=== PATIENT | male | born 1940 | race Caucasian/White ===

== ENCOUNTER 2020-08-15 12:06 | Outpatient (REF) | payer MEDICARE, SELFPAY ==
--- NOTE | 2020-08-15 12:50 | US_ITS ---
EXAMINATION: US VENOUS ULTRASOUND WITH DOPPLER LOWER EXTREMITY, LEFT CLINICAL INFORMATION: Left lower extremity pain. Swelling posterior knee. COMPARISON: None TECHNIQUE: Ultrasound of the deep veins is performed from the hip to the calf with compression sonography and color and pulse Doppler assessment. Spectral analysis with color-flow imaging is performed. FINDINGS: There is normal venous compression and respiratory variation and augmented flow. The visualized common femoral vein, superficial femoral vein, profunda femoral vein, popliteal vein, and the trifurcation region shows no evidence of deep venous thrombosis. No visible popliteal fossa cyst. No cystic or solid mass seen popliteal fossa. US/US venous duplex LE LT IMPRESSION: No DVT demonstrated in the left lower extremity.
== END 2020-08-15 12:07 | disposition home or self-care (01) ==
LOC: HO.US 12:06
PROVIDERS: Visit Provider Internal Medicine
DX: M79.662 Pain in left lower leg (principal); M79.89 Other specified soft tissue disorders
CPT/HCPCS: 93971

== ENCOUNTER 2020-08-20 13:55 | Outpatient (REF) | payer MEDICARE, SELFPAY ==
--- NOTE | 2020-08-20 14:02 | XR_ITS ---
EXAMINATION: XR KNEE, LEFT CLINICAL INFORMATION: Left leg pain COMPARISON: None TECHNIQUE: Four views of the left knee. FINDINGS: No fracture or dislocation seen. Mild medial and patellofemoral joint space narrowing. There are dystrophic calcifications or enthesophytes of the distal quadriceps tendon attachment to the patella consistent with prior injury. No joint effusion. XR/XR knee LT 4V IMPRESSION: Mild medial and patellofemoral joint space narrowing. No acute osseous abnormality.
== END 2020-08-20 13:56 | disposition home or self-care (01) ==
LOC: HO.XRAY 13:55
PROVIDERS: PCP Internal Medicine; Visit Provider Internal Medicine
DX: M79.605 Pain in left leg (principal)
CPT/HCPCS: 73564

== ENCOUNTER 2020-10-02 07:58 | Outpatient (REF) | payer MEDICARE, SELFPAY ==
[2020-10-02 08:34] LABS: MANUAL DIFF FLAG NO
[2020-10-02 08:38] LABS: Basophils Absolute Auto 0.1 X10*3/uL (0.0-0.2); Basophils Percent Auto 0.9 % (0-2); Eosinophils Absolute Auto 0.2 X10*3/uL (0.0-0.4); Hematocrit 49.2 % (42-52); Imm Gran Abs Auto 0.03 X10*3/uL (0.00-0.03); Imm Gran Pct Auto 0.4 % (0.0-0.4); Lymphocytes Absolute Auto 3.6 X10*3/uL (1.2-4.9); Lymphocytes Percent Auto 44.4 % (20-40); Mean Corpuscular HGB Conc 34.6 g/dl (31.0-36.0); Mean Corpuscular Hemoglobin 29.5 pg (27.0-33.0); Mean Corpuscular Volume 85.4 fL (80-98); Mean Platelet Volume 10.5 fL (9.4-12.4); Monocytes Absolute Auto 0.9 X10*3/uL (0.1-1.2); Monocytes Percent Auto 10.4 % (2-11); Neutrophils Absolute Auto 3.4 X10*3/uL (2.0-8.3); Neutrophils Percent Auto 41.9 % (45-73); Platelet Count 235 X10*3/uL (160-400); Red Blood Count 5.76 X10*6/uL (4.60-5.80); Red Cell Distribution Width 13.2 % (11.0-16.0); White Blood Count 8.2 X10*3/uL (4.8-10.8)
[2020-10-02 09:05] LABS: Alanine Aminotransferase 27 U/L (0-40); Albumin Level 3.9 g/dL (3.5-5.0); Alkaline Phosphatase 79 U/L (39-117); Anion Gap 11 (12-20); Aspartate Amino Transferase 16 U/L (5-37); Bilirubin Total 0.8 mg/dL (0.0-1.0); Blood Urea Nitrogen 31 mg/dL (9-16); Calcium 8.9 mg/dL (8.4-10.2); Carbon Dioxide 27 mmol/L (22-29); Chloride 103 mmol/L (96-108); Cholesterol 202 mg/dL; Estimated Glomerular Filt Rate 43; Glucose Random 152 mg/dL (60-115); HDL Cholesterol 69 mg/dL; LDL Cholesterol Calculated 110 mg/dl; Potassium 4.7 mmol/l (3.3-5.1); Sodium 136 mmol/L (135-145); Total Protein 7.4 g/dL (6.5-8.0); Triglycerides 119 mg/dL
[2020-10-02 09:17] LABS: Glucose Urine UA 100 MG/DL (NEG); Leukocyte Esterase Urine NEG (NEG); Nitrite Urine NEG (NEG); Urine Blood NEG (NEG); Urine Ketones NEG (NEG); Urine Protein 1+ MG/DL (NEG-TRACE)
[2020-10-02 09:21] LABS: Appearance Urine CLEAR; Color Urine YELLOW
[2020-10-02 09:42] LABS: RBC Urine 0-2 /HPF (0); WBC Urine 0-2 /HPF (0-4)
[2020-10-02 09:45] LABS: Creatinine Urine 94.94 mg/dL; Microalbum/Creatinine Ratio Ur 235.9 ug/mg cr
[2020-10-02 09:46] LABS: Estimated Average Glucose 235 mg/dL; Hemoglobin A1c % 9.8 %
[2020-10-02 10:04] LABS: Prostate Specific Antigen 4.81 ng/mL (<0.05-4.0)
== END 2020-10-02 07:59 | disposition home or self-care (01) ==
LOC: HO.LAB 07:58
PROVIDERS: Visit Provider Internal Medicine
DX: E10.29 Type 1 diabetes mellitus with other diabetic kidney complication (principal); I10 Essential (primary) hypertension; R79.89 Other specified abnormal findings of blood chemistry
CPT/HCPCS: 36415; 80053; 80061; 81001; 82043; 83036; 84153; 85025

== ENCOUNTER 2021-01-08 10:40 | Outpatient (REF) | payer MEDICARE, SELFPAY ==
[2021-01-08 14:08] LABS: MANUAL DIFF FLAG NO
[2021-01-08 14:14] LABS: Basophils Absolute Auto 0.1 X10*3/uL (0.0-0.2); Basophils Percent Auto 0.9 % (0-2); Eosinophils Absolute Auto 0.1 X10*3/uL (0.0-0.4); Eosinophils Percent Auto 1.7 % (0-4); Hematocrit 45.7 % (42-52); Hemoglobin 16.2 g/dl (14.0-18.0); Imm Gran Abs Auto 0.04 X10*3/uL (0.00-0.03); Imm Gran Pct Auto 0.5 % (0.0-0.4); Lymphocytes Absolute Auto 3.2 X10*3/uL (1.2-4.9); Mean Corpuscular HGB Conc 35.4 g/dl (31.0-36.0); Mean Corpuscular Hemoglobin 30.5 pg (27.0-33.0); Mean Corpuscular Volume 85.9 fL (80-98); Mean Platelet Volume 11.4 fL (9.4-12.4); Monocytes Absolute Auto 0.8 X10*3/uL (0.1-1.2); Monocytes Percent Auto 9.8 % (2-11); Neutrophils Absolute Auto 3.6 X10*3/uL (2.0-8.3); Neutrophils Percent Auto 46.1 % (45-73); Platelet Count 252 X10*3/uL (160-400); Red Blood Count 5.32 X10*6/uL (4.60-5.80); Red Cell Distribution Width 13.5 % (11.0-16.0); White Blood Count 7.8 X10*3/uL (4.8-10.8)
[2021-01-08 14:41] LABS: Estimated Average Glucose 220 mg/dL; Hemoglobin A1c % 9.3 %
[2021-01-08 14:49] LABS: Alanine Aminotransferase 27 U/L (0-40); Alkaline Phosphatase 72 U/L (39-117); Anion Gap 15 (12-20); Aspartate Amino Transferase 18 U/L (5-37); Bilirubin Total 0.6 mg/dL (0.0-1.0); Blood Urea Nitrogen 35 mg/dL (9-16); Calcium 8.8 mg/dL (8.4-10.2); Carbon Dioxide 22 mmol/L (22-29); Chloride 106 mmol/L (96-108); Estimated Glomerular Filt Rate 43; Glucose Random 130 mg/dL (60-115); Potassium 4.6 mmol/L (3.3-5.1); Sodium 138 mmol/L (135-145); Total Protein 7.4 g/dL (6.5-8.0)
[2021-01-08 14:56] LABS: Creatinine Urine 150.74 mg/dL; Microalbum/Creatinine Ratio Ur 164.5 ug/mg cr
== END 2021-01-08 10:41 | disposition home or self-care (01) ==
LOC: HO.10HDL 10:40
PROVIDERS: Visit Provider Internal Medicine
DX: I12.9 Hypertensive chronic kidney disease with stage 1 through stage 4 chronic kidney disease, or unspecified chronic kidney disease (principal); N18.9 Chronic kidney disease, unspecified; E11.22 Type 2 diabetes mellitus with diabetic chronic kidney disease
CPT/HCPCS: 36415; 80053; 82043; 83036; 85025

== ENCOUNTER 2021-04-15 12:10 | Outpatient (REF) | payer MEDICARE, SELFPAY ==
[2021-04-15 13:26] LABS: Estimated Average Glucose 223 mg/dL; Hemoglobin A1c % 9.4 %
[2021-04-15 13:49] LABS: Alanine Aminotransferase 23 U/L (0-40); Albumin Level 3.8 g/dL (3.5-5.0); Alkaline Phosphatase 75 U/L (39-117); Anion Gap 14 (12-20); Aspartate Amino Transferase 17 U/L (5-37); Bilirubin Total 0.6 mg/dL (0.0-1.0); Blood Urea Nitrogen 31 mg/dL (9-16); Calcium 9.4 mg/dL (8.4-10.2); Carbon Dioxide 22 mmol/L (22-29); Chloride 107 mmol/L (96-108); Estimated Glomerular Filt Rate 39; Glucose Random 85 mg/dL (60-115); Potassium 4.4 mmol/L (3.3-5.1); Sodium 139 mmol/L (135-145); Total Protein 7.1 g/dL (6.5-8.0)
[2021-04-15 14:49] LABS: Creatinine Urine 127.04 mg/dL; Microalbum/Creatinine Ratio Ur 140.1 ug/mg cr
== END 2021-04-15 12:11 | disposition home or self-care (01) ==
LOC: HO.LAB 12:10
PROVIDERS: PCP Internal Medicine; Visit Provider Internal Medicine
DX: I12.9 Hypertensive chronic kidney disease with stage 1 through stage 4 chronic kidney disease, or unspecified chronic kidney disease (principal); N18.9 Chronic kidney disease, unspecified; E11.22 Type 2 diabetes mellitus with diabetic chronic kidney disease
CPT/HCPCS: 36415; 80053; 82043; 83036

== ENCOUNTER 2022-12-17 13:32 | Outpatient (REF) | payer MEDICARE, SELFPAY ==
[2022-12-17 14:39] LABS: Influenza A PCR NEGATIVE (Negative); Influenza B PCR NEGATIVE (Negative); Resp Syncy Virus RNA Qual PCR NEGATIVE (Negative); SARS COV2 PCR INHOUSE POSITIVE (Negative)
== END 2022-12-17 13:33 | disposition home or self-care (01) ==
LOC: HO.LNP 13:32
PROVIDERS: Visit Provider Internal Medicine
DX: R05.9 Cough, unspecified (principal); R50.9 Fever, unspecified; Z20.822 Contact with and (suspected) exposure to COVID-19
CPT/HCPCS: 0241U

== ENCOUNTER 2022-12-31 09:55 | Outpatient (REF) | payer MEDICARE, SELFPAY ==
[2022-12-31 10:27] LABS: MANUAL DIFF FLAG NO
[2022-12-31 10:43] LABS: Basophils Absolute Auto 0.1 X10*3/uL (0.0-0.2); Basophils Percent Auto 1.3 % (0-2); Eosinophils Absolute Auto 0.3 X10*3/uL (0.0-0.4); Eosinophils Percent Auto 4.8 % (0-4); Hematocrit 43.3 % (42.0-52.0); Imm Gran Abs Auto 0.07 X10*3/uL (0.00-0.03); Lymphocytes Absolute Auto 2.2 X10*3/uL (1.2-4.9); Lymphocytes Percent Auto 33.4 % (20-40); Mean Corpuscular HGB Conc 34.6 g/dl (31.0-36.0); Mean Corpuscular Hemoglobin 29.2 pg (27.0-33.0); Mean Corpuscular Volume 84.2 fL (80.0-98.0); Mean Platelet Volume 9.9 fL (9.4-12.4); Monocytes Percent Auto 14.3 % (2-11); Neutrophils Percent Auto 45.2 % (45-73); Platelet Count 490 X10*3/uL (160-400); Red Blood Count 5.14 X10*6/uL (4.60-5.80); Red Cell Distribution Width 12.7 % (11.0-16.0); White Blood Count 6.7 X10*3/uL (4.8-10.8)
[2022-12-31 11:16] LABS: Alanine Aminotransferase 32 U/L (0-40); Albumin Level 3.2 g/dL (3.5-5.0); Alkaline Phosphatase 83 U/L (39-117); Anion Gap 14 (12-20); Aspartate Amino Transferase 17 U/L (5-37); Bilirubin Total 0.7 mg/dL (0.0-1.0); Blood Urea Nitrogen 25 mg/dL (9-16); Calcium 8.8 mg/dL (8.4-10.2); Carbon Dioxide 22 mmol/L (22-29); Chloride 107 mmol/L (96-108); Estimated Glomerular Filt Rate 43; Glucose Random 147 mg/dL (60-115); Sodium 138 mmol/L (135-145); Total Protein 6.4 g/dL (6.5-8.0)
[2022-12-31 11:38] LABS: Free T4 (Free Thyroxine) 1.16 ng/dL (0.71-1.85); Thyroid Stimulating Hormone 0.66 uIU/mL (0.32-4.0); Vitamin B12 883 pg/mL (200-900)
[2022-12-31 11:42] LABS: Estimated Average Glucose 212 mg/dL
== END 2022-12-31 09:56 | disposition home or self-care (01) ==
LOC: HO.10HDL 09:55
PROVIDERS: Visit Provider Internal Medicine
DX: G62.9 Polyneuropathy, unspecified (principal); I12.9 Hypertensive chronic kidney disease with stage 1 through stage 4 chronic kidney disease, or unspecified chronic kidney disease; E11.22 Type 2 diabetes mellitus with diabetic chronic kidney disease; N18.9 Chronic kidney disease, unspecified
CPT/HCPCS: 36415; 80053; 82607; 83036; 84439; 84443; 85025

== ENCOUNTER 2023-03-13 08:53 | Outpatient (REF) | payer MEDICARE, SELFPAY ==
[2023-03-13 09:11] LABS: MANUAL DIFF FLAG NO
[2023-03-13 09:33] LABS: Basophils Absolute Auto 0.1 X10*3/uL (0.0-0.2); Basophils Percent Auto 0.8 % (0-2); Eosinophils Absolute Auto 0.2 X10*3/uL (0.0-0.4); Eosinophils Percent Auto 2.9 % (0-4); Hematocrit 43.6 % (42.0-52.0); Hemoglobin 15.1 g/dl (14.0-18.0); Imm Gran Abs Auto 0.03 X10*3/uL (0.00-0.03); Imm Gran Pct Auto 0.4 % (0.0-0.4); Lymphocytes Absolute Auto 3.1 X10*3/uL (1.2-4.9); Lymphocytes Percent Auto 37.6 % (20-40); Mean Corpuscular HGB Conc 34.6 g/dl (31.0-36.0); Mean Corpuscular Hemoglobin 29.8 pg (27.0-33.0); Mean Corpuscular Volume 86.2 fL (80.0-98.0); Mean Platelet Volume 10.3 fL (9.4-12.4); Monocytes Absolute Auto 0.8 X10*3/uL (0.1-1.2); Monocytes Percent Auto 9.8 % (2-11); Neutrophils Percent Auto 48.5 % (45-73); Platelet Count 233 X10*3/uL (160-400); Red Blood Count 5.06 X10*6/uL (4.60-5.80); Red Cell Distribution Width 13.7 % (11.0-16.0); White Blood Count 8.3 X10*3/uL (4.8-10.8)
[2023-03-13 09:54] LABS: Anion Gap 13 (12-20); Blood Urea Nitrogen 31 mg/dL (9-16); Calcium 9.5 mg/dL (8.4-10.2); Carbon Dioxide 21 mmol/L (22-29); Chloride 108 mmol/L (96-108); Estimated Glomerular Filt Rate 41; Glucose Random 175 mg/dL (60-115); Potassium 4.7 mmol/L (3.3-5.1); Sodium 137 mmol/L (135-145)
[2023-03-13 10:27] LABS: Creatinine Urine 117.47 mg/dL; Protein/Creatinine Ratio, Ur 0.79 (<0.2); Total Protein Urine Random 93 mg/dL (<12)
== END 2023-03-13 08:54 | disposition home or self-care (01) ==
LOC: HO.LAB 08:53
PROVIDERS: PCP Internal Medicine; Visit Provider Internal Medicine Hypertension Specialist
DX: N18.31 Chronic kidney disease, stage 3a (principal)
CPT/HCPCS: 36415; 80048; 84156; 85025

== ENCOUNTER 2023-04-01 08:24 | Outpatient (REF) | payer MEDICARE, SELFPAY ==
[2023-04-01 11:15] LABS: Estimated Average Glucose 183 mg/dL
[2023-04-01 11:26] LABS: Alanine Aminotransferase 18 U/L (0-40); Albumin Level 3.6 g/dL (3.5-5.0); Alkaline Phosphatase 69 U/L (39-117); Anion Gap 14 (12-20); Aspartate Amino Transferase 15 U/L (5-37); Bilirubin Total 0.6 mg/dL (0.0-1.0); Blood Urea Nitrogen 38 mg/dL (9-16); Calcium 9.3 mg/dL (8.4-10.2); Carbon Dioxide 24 mmol/L (22-29); Chloride 106 mmol/L (96-108); Cholesterol 205 mg/dL; Estimated Glomerular Filt Rate 36; Glucose Random 149 mg/dL (60-115); Potassium 4.6 mmol/L (3.3-5.1); Sodium 139 mmol/L (135-145)
== END 2023-04-01 08:25 | disposition home or self-care (01) ==
LOC: HO.LAB 08:24
PROVIDERS: PCP Internal Medicine; Visit Provider Internal Medicine
DX: E11.22 Type 2 diabetes mellitus with diabetic chronic kidney disease (principal); I12.9 Hypertensive chronic kidney disease with stage 1 through stage 4 chronic kidney disease, or unspecified chronic kidney disease; N18.9 Chronic kidney disease, unspecified
CPT/HCPCS: 36415; 80053; 82465; 83036

== ENCOUNTER 2023-06-10 09:20 | Outpatient (REF) | payer MEDICARE, SELFPAY ==
--- NOTE | 2023-06-10 09:24 | EMG_ITS ---
Bilateral tibial and peroneal motor studies were performed. Bilateral superficial peroneal and sural sensory studies were performed. Median and lateral plantar sensory studies were performed. Tibial H reflexes were obtained. A needle examination was performed. 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 MD LUIS FERNANDO Bentley/ANG / [id number]
== END 2023-06-10 09:21 | disposition home or self-care (01) ==
LOC: HO.NEURO 09:20
PROVIDERS: PCP Internal Medicine; Visit Provider Internal Medicine
DX: E11.40 Type 2 diabetes mellitus with diabetic neuropathy, unspecified (principal)
CPT/HCPCS: 95886; 95913

== ENCOUNTER 2023-08-31 14:17 | Outpatient (AMB) | payer MEDICARE, SELFPAY ==
[2023-08-31 14:26] VITALS: BP 138/68; PULSE 64; BMI 30.5
--- NOTE | 2023-08-31 14:26 | HO.NEPHOV ---
HPI HPI Comments History of Present Illness Details Elderly man with history of longstanding hypertension diabetes mellitus with CKD. He is complaining of pain in his feet most likely from neuropathy. He was unable to tolerate Lyrica in the past. He was given 100 mg which he did not tolerate. Today he has no other new complaints. No urine symptoms. No nausea vomiting. Vital Signs 08/31/23 14:26 Height 5 ft 6 in Weight 189 lb BMI 30.5 BP 138/68 Pulse 64 Pulse Source Palpation Physical Exam Vital Signs: Last Vital Signs Pulse 64 08/31/23 14:26 BP 138/68 08/31/23 14:26 BMI result Body Mass Index 30.5 Const General: comfortable; No acute distress Orientation/consciousness: patient oriented x3 Eyes General: appearance normal, both eyes and all related structures Visual Carver: normal visual carver by confrontation Neck Neck: Yes supple and Yes no JVD Resp Effort & Inspection: normal respiratory effort and respiratory effort not decreased Auscultation: rhonchi Cardio Palpation: no palpable S3 and no palpable S4 Heart sounds: no rubs GI Inspection: Yes normal to inspection Palpation (GI): Soft to palpation Percussion: Yes normal to percussion Auscultation: normal bowel sounds General: Yes no CVA tenderness Back/Spine/Pelvis Back: no CVA tenderness Skin General skin exam: no petechiae and no purpura Neuro General: patient oriented x3 and no focal motor deficits Extrem General: No clubbing and No edema Results Reviewed Results Reviewed: All lab results were reviewed from [facility] Assessment & Plan Assessment & Plan (1) CKD (chronic kidney disease) stage 3, GFR 30-59 ml/min: Code(s): N18.30 - Chronic kidney disease, stage 3 unspecified (2) Diabetes mellitus with chronic kidney disease: Code(s): E11.22 - Type 2 diabetes mellitus with diabetic chronic kidney disease Plan Elderly man CKD 3 in the setting of longstanding diabetes mellitus. Overall renal function stable. Goal is to slow the progression of renal disease. Continue to avoid nephrotoxic agents including NSAIDs. Maintain blood pressure less than 130 mm of mercury. No changes were made today. Orders: Orders Total Protein Urine Random 4 Months N18.30 - Chronic kidney disease, stage 3 unspecified Electrolytes 4 Months N18.30 - Chronic kidney disease, stage 3 unspecified Creatinine Clearance Urine 4 Months N18.30 - Chronic kidney disease, stage 3 unspecified Blood Urea Nitrogen 4 Months N18.30 - Chronic kidney disease, stage 3 unspecified Creatinine 4 Months N18.30 - Chronic kidney disease, stage 3 unspecified Calcium 4 Months N18.30 - Chronic kidney disease, stage 3 unspecified Coding Level of Care Code Est Pt Level 3 (39255) Diagnoses CKD (chronic kidney disease) stage 3, GFR 30-59 ml/min N18.30 Diabetes mellitus with chronic kidney disease E11.22
== END 2023-08-31 14:49 | disposition home or self-care (01) ==
LOC: HO.HKA 14:17
PROVIDERS: PCP Internal Medicine; Visit Provider Internal Medicine Hypertension Specialist
DX: E11.22 Type 2 diabetes mellitus with diabetic chronic kidney disease (principal); N18.30 Chronic kidney disease, stage 3 unspecified
CPT/HCPCS: 99213

== ENCOUNTER → 2023-08-31 14:17 | Outpatient (BNVA) | payer MEDICARE, SELFPAY | PROVIDERS: PCP Internal Medicine; Visit Provider Internal Medicine Hypertension Specialist | DX: E11.22 Type 2 diabetes mellitus with diabetic chronic kidney disease (principal); N18.30 Chronic kidney disease, stage 3 unspecified | CPT/HCPCS: 99212 ==

== ENCOUNTER 2023-12-16 14:07 | Outpatient (REF) | payer MEDICARE, SELFPAY ==
[2023-12-16 15:25] LABS: Anion Gap 10 (12-20); Blood Urea Nitrogen 26 mg/dL (9-16); Carbon Dioxide 25 mmol/L (22-29); Chloride 108 mmol/L (96-108); Potassium 4.4 mmol/L (3.3-5.1); Sodium 139 mmol/L (135-145)
[2023-12-16 16:05] LABS: Total Protein Urine Random 142 mg/dL (<12)
== END 2023-12-16 14:08 | disposition home or self-care (01) ==
LOC: HO.LAB 14:07
PROVIDERS: Visit Provider Internal Medicine Hypertension Specialist
DX: N18.30 Chronic kidney disease, stage 3 unspecified (principal)
CPT/HCPCS: 36415; 80051; 82310; 84156; 84520

== ENCOUNTER 2023-12-21 11:33 | Outpatient (AMB) | payer MEDICARE, SELFPAY ==
[2023-12-21 11:34] VITALS: BP 126/70; PULSE 80; O2SAT 98; BMI 30.5
--- NOTE | 2023-12-21 11:34 | HO.NEPHOV ---
HPI HPI Comments History of Present Illness Details Elderly man with history of longstanding hypertension diabetes mellitus with CKD. h/o pain in his feet most likely from neuropathy. He was unable to tolerate Lyrica in the past. He was given 100 mg which he did not tolerate. Continues to have some numbness in his feet No urine symptoms. No nausea vomiting. [facility] Social History (Updated 12/21/23 @ 11:37 by Brittni Landeros) Alcohol intake: former Use of substances other than those prescribed or required for medical reasons: No Vital Signs 12/21/23 11:34 Height 5 ft 6 in Weight 189 lb BMI 30.5 BP 126/70 Blood Pressure Location Lt brachial Position Sitting Pulse 80 Pulse Source Pulse Oximeter Pulse Oximetry (%) 98 Oxygen Delivery Method Room Air Physical Exam Vital Signs: Last Vital Signs Pulse 80 12/21/23 11:34 BP 126/70 12/21/23 11:34 Pulse Ox 98 12/21/23 11:34 Oxygen Delivery Method Room Air 12/21/23 11:34 BMI result Body Mass Index 30.5 Const General: comfortable; No acute distress Orientation/consciousness: patient oriented x3 Eyes General: appearance normal, both eyes and all related structures Visual Carver: normal visual carver by confrontation Neck Neck: Yes supple and Yes no JVD Resp Effort & Inspection: normal respiratory effort and respiratory effort not decreased Auscultation: rhonchi Cardio Palpation: no palpable S3 and no palpable S4 Heart sounds: no rubs GI Inspection: Yes normal to inspection Palpation (GI): Soft to palpation Percussion: Yes normal to percussion Auscultation: normal bowel sounds General: Yes no CVA tenderness Back/Spine/Pelvis Back: no CVA tenderness Skin General skin exam: no petechiae and no purpura Neuro General: patient oriented x3 and no focal motor deficits Extrem General: No clubbing and No edema Assessment & Plan Assessment & Plan (1) CKD (chronic kidney disease) stage 3, GFR 30-59 ml/min: Code(s): N18.30 - Chronic kidney disease, stage 3 unspecified (2) Diabetes mellitus with chronic kidney disease: Code(s): E11.22 - Type 2 diabetes mellitus with diabetic chronic kidney disease Plan Elderly man CKD 3 in the setting of longstanding diabetes mellitus. Overall renal function stable. Recent Urine Pro: cr was 0.79 Goal is to slow the progression of renal disease. Continue to avoid nephrotoxic agents including NSAIDs. Maintain blood pressure less than 130 mm of mercury. No changes were made today. Orders: Orders Comprehensive Met. 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, N18.30 - Chronic kidney disease, stage 3 unspecified Sodium Urine Random 6 Months E11.22 - Type 2 diabetes mellitus with diabetic chronic kidney disease, N18.30 - Chronic kidney disease, stage 3 unspecified, N18.9 - Chronic kidney disease, unspecified Parathyroid Hormone Intact 6 Months E11.22 - Type 2 diabetes mellitus with diabetic chronic kidney disease, N18.30 - Chronic kidney disease, stage 3 unspecified Total Protein Urine Random 6 Months E11.22 - Type 2 diabetes mellitus with diabetic chronic kidney disease, N18.30 - Chronic kidney disease, stage 3 unspecified Coding Level of Care Code Est Pt Level 4 (09430) Diagnoses CKD (chronic kidney disease) stage 3, GFR 30-59 ml/min N18.30 Diabetes mellitus with chronic kidney disease E11. Results Reviewed Nephrology Results: Hgb 15.1 g/dl (14.0-18.0) 03/13/23 WBC 8.3 X10*3/uL (4.8-10.8) 03/13/23 Plt Count 233 X10*3/uL (160-400) 03/13/23 Sodium 139 mmol/L (135-145) 12/16/23 Potassium 4.4 mmol/L (3.3-5.1) 12/16/23 Chloride 108 mmol/L (96-108) 12/16/23 Carbon Dioxide 25 mmol/L (22-29) 12/16/23 BUN 26 mg/dL (9-16) H 12/16/23 Creatinine 1.81 mg/dL (0.5-1.4) H 04/01/23 Calcium 9.0 mg/dL (8.4-10.2) 12/16/23 Urine Protein 1+ MG/DL (NEG-TRACE) H 10/02/20 Urine Creatinine 117.47 mg/dL 03/13/23 Protein/Creatinin Ratio 0.79 (<0.2) H 03/13/23
== END 2023-12-21 11:55 | disposition home or self-care (01) ==
PROVIDERS: PCP Internal Medicine; Visit Provider Internal Medicine Hypertension Specialist
DX: E11.22 Type 2 diabetes mellitus with diabetic chronic kidney disease (principal); N18.30 Chronic kidney disease, stage 3 unspecified
CPT/HCPCS: 99214

== ENCOUNTER → 2023-12-21 11:33 | Outpatient (BNVA) | payer MEDICARE, SELFPAY | PROVIDERS: PCP Internal Medicine; Visit Provider Internal Medicine Hypertension Specialist | DX: E11.22 Type 2 diabetes mellitus with diabetic chronic kidney disease (principal); N18.30 Chronic kidney disease, stage 3 unspecified | CPT/HCPCS: 99212 ==

== ENCOUNTER 2024-06-26 10:49 | Outpatient (AMB) | payer MEDICARE, SELFPAY ==
[2024-06-26 10:51] VITALS: BP 180/70; PULSE 70; O2SAT 96; BMI 30.7
--- NOTE | 2024-06-26 10:51 | HO.NEPHOV ---
Vital Signs 06/26/24 10:51 Height 5 ft 6 in Weight 190 lb BMI 30.7 BP 180/70 H Blood Pressure Location Rt brachial Position Sitting Pulse 70 Pulse Source Pulse Oximeter Pulse Oximetry (%) 96 Oxygen Delivery Method Room Air Intake Visit Reasons: CKD/ Conf [employer] Buyer Required: No Accompanied by: Self / Same As Patient Allergies No Known Allergies Allergy (Verified 06/26/24 10:54) Medication List - Last Reconciled 06/26/24 by Lj Bowen MD [email or web address] (Jardiance) 10 mg PO DAILY glipizide 5 mg PO DAILY insulin glargine (Lantus Solostar U-100 Insulin) 15 units subcut QAM lisinopril 15 mg PO DAILY metformin 500 mg PO QDAY vitamin B complex 1 tab PO DAILY HPI Comments Details: Elderly man with history of longstanding hypertension diabetes mellitus with CKD. h/o pain in his feet most likely from neuropathy. He was unable to tolerate Lyrica in the past. He was given 100 mg which he did not tolerate. Continues to have some numbness in his feet No urine symptoms. No nausea vomiting. 06/26/2024. Overall doing well. Recently seen by Cardiology. He was discharged after echocardiogram. Trulicity has been discontinued and currently on Jardiance for the last few weeks. He is not too happy with this. Blood sugar has been suboptimal. At home blood pressures have been acceptable. [facility] Social History Alcohol intake: former Physical Exam Vital Signs: Last Vital Signs Pulse 70 06/26/24 10:51 BP 180/70 H 06/26/24 10:51 Pulse Ox 96 06/26/24 10:51 Oxygen Delivery Method Room Air 06/26/24 10:51 BMI result Body Mass Index 30.7 Const General: comfortable; No acute distress Orientation/consciousness: patient oriented x3 Eyes General: appearance normal, both eyes and all related structures Visual Valiente: normal visual valiente by confrontation Neck Neck: Yes supple and Yes no JVD Resp Effort & Inspection: normal respiratory effort and respiratory effort not decreased Auscultation: rhonchi Cardio Palpation: no palpable S3 and no palpable S4 Heart sounds: no rubs GI Inspection: Yes normal to inspection Palpation (GI): Soft to palpation Percussion: Yes normal to percussion Auscultation: normal bowel sounds General: Yes no CVA tenderness Back/Spine/Pelvis Back: no CVA tenderness Skin General skin exam: no petechiae and no purpura Neuro General: patient oriented x3 and no focal motor deficits Extrem General: No clubbing and No edema Results Reviewed Nephrology Results: Hgb 15.1 g/dl (14.0-18.0) 03/13/23 WBC 8.3 X10*3/uL (4.8-10.8) 03/13/23 Plt Count 233 X10*3/uL (160-400) 03/13/23 Sodium 139 mmol/L (135-145) 12/16/23 Potassium 4.4 mmol/L (3.3-5.1) 12/16/23 Chloride 108 mmol/L (96-108) 12/16/23 Carbon Dioxide 25 mmol/L (22-29) 12/16/23 BUN 26 mg/dL (9-16) H 12/16/23 Creatinine 1.81 mg/dL (0.5-1.4) H 04/01/23 Calcium 9.0 mg/dL (8.4-10.2) 12/16/23 Urine Protein 1+ MG/DL (NEG-TRACE) H 10/02/20 Urine Creatinine 117.47 mg/dL 03/13/23 Protein/Creatinin Ratio 0.79 (<0.2) H 03/13/23 Assessment & Plan Assessment & Plan (1) CKD (chronic kidney disease) stage 3, GFR 30-59 ml/min: Code(s): N18.30 - Chronic kidney disease, stage 3 unspecified Category: Medical (2) Diabetes mellitus with chronic kidney disease: Code(s): E11.22 - Type 2 diabetes mellitus with diabetic chronic kidney disease Category: Medical Plan Elderly man CKD 3 in the setting of longstanding diabetes mellitus. Recent bump in creatinine up to 1.8. Probably has a component of hypoperfusion. Recheck renal panel in 1-2 weeks. Check ultrasonogram to rule out any ongoing obstruction. Recent Urine Pro: cr was 0.79 Goal is to slow the progression of renal disease. Continue to avoid nephrotoxic agents including NSAIDs. Blood pressure is suboptimal today. Encouraged him to check his blood pressure at home and to call me with readings. Might have to readjust his medications based on home readings Maintain blood pressure less than 130 mm of mercury. . Orders: Orders US renal BI 06/26/24 N18.30 - Chronic kidney disease, stage 3 unspecified Basic Metabolic Panel 2 Weeks N18.30 - Chronic kidney disease, stage 3 unspecified Coding Level of Care Code Est Pt Level 4 (69196) Diagnoses CKD (chronic kidney disease) stage 3, GFR 30-59 ml/min N18.30 Diabetes mellitus with chronic kidney disease E11.22
== END 2024-06-26 11:32 | disposition home or self-care (01) ==
PROVIDERS: PCP Internal Medicine; Visit Provider Internal Medicine Hypertension Specialist
DX: I12.9 Hypertensive chronic kidney disease with stage 1 through stage 4 chronic kidney disease, or unspecified chronic kidney disease (principal); E11.22 Type 2 diabetes mellitus with diabetic chronic kidney disease; N18.30 Chronic kidney disease, stage 3 unspecified
CPT/HCPCS: 99214

== ENCOUNTER → 2024-06-26 10:49 | Outpatient (BNVA) | payer MEDICARE, SELFPAY | PROVIDERS: PCP Internal Medicine; Visit Provider Internal Medicine Hypertension Specialist | DX: E11.22 Type 2 diabetes mellitus with diabetic chronic kidney disease (principal); I12.9 Hypertensive chronic kidney disease with stage 1 through stage 4 chronic kidney disease, or unspecified chronic kidney disease; N18.30 Chronic kidney disease, stage 3 unspecified | CPT/HCPCS: 99212 ==

== ENCOUNTER 2024-07-06 13:22 | Outpatient (REF) | payer MEDICARE, SELFPAY ==
--- NOTE | ~2024-07-06 | US_ITS ---
EXAMINATION: US RETROPERITONEAL LIMITED (RENAL ONLY) CLINICAL INFORMATION: CKD stage III. COMPARISON: Renal ultrasound July 19, 2019 TECHNIQUE: Grayscale and color Doppler ultrasound examination of the kidneys. FINDINGS: RIGHT KIDNEY: 10 x 5 x 5.3 cm (SAG x AP x TRV). The kidney is normal in size, contour, and echogenicity. Renal cortical thickness is normal. No suspicious focal renal lesion. No hydronephrosis. 3 mm calcification lower pole right kidney. Nonobstructive stone versus vascular calcification. LEFT KIDNEY: 11 x 5.6 x 5.3 cm (SAG x AP x TRV). The kidney is normal in size, contour, and echogenicity. Renal cortical thickness is normal. No calculi or focal parenchymal lesions. No hydronephrosis. US/US renal BI IMPRESSION: 1. No acute abnormality. No hydronephrosis. 2. 3 mm calcification lower pole right kidney. Nonobstructive stone versus vascular calcification. Electronically signed by: Jesus Murphy MD 07/06/2024 04:34 PM EDT
== END 2024-07-06 13:23 | disposition home or self-care (01) ==
LOC: HO.US 13:22
PROVIDERS: PCP Internal Medicine; Visit Provider Internal Medicine Hypertension Specialist
DX: N18.30 Chronic kidney disease, stage 3 unspecified (principal); N17.9 Acute kidney failure, unspecified
CPT/HCPCS: 76775

== ENCOUNTER 2024-08-01 15:13 | Outpatient (REF) | payer MEDICARE, SELFPAY ==
[2024-08-01 16:36] LABS: Alanine Aminotransferase 29 U/L (0-40); Albumin Level 3.7 g/dL (3.5-5.0); Alkaline Phosphatase 68 U/L (39-117); Anion Gap 12 (12-20); Aspartate Amino Transferase 20 U/L (5-37); Bilirubin Total 0.3 mg/dL (0.0-1.0); Blood Urea Nitrogen 34 mg/dL (9-16); Carbon Dioxide 23 mmol/L (22-29); Chloride 109 mmol/L (96-108); Estimated Glomerular Filt Rate 33; Glucose Random 117 mg/dL (60-115); Magnesium 2.2 mg/dL (1.6-2.6); Potassium 4.7 mmol/L (3.3-5.1); Sodium 139 mmol/L (135-145); Total Protein 6.9 g/dL (6.5-8.0)
[2024-08-01 17:22] LABS: Total Protein Urine Random 72 mg/dL (<12)
== END 2024-08-01 15:14 | disposition home or self-care (01) ==
LOC: HO.LAB 15:13
PROVIDERS: Absent Provider Internal Medicine; PCP Internal Medicine; Visit Provider Internal Medicine Hypertension Specialist
DX: N05.9 Unspecified nephritic syndrome with unspecified morphologic changes (principal); E11.22 Type 2 diabetes mellitus with diabetic chronic kidney disease; N18.30 Chronic kidney disease, stage 3 unspecified; N18.9 Chronic kidney disease, unspecified; R05.9 Cough, unspecified
CPT/HCPCS: 36415; 80053; 82570; 83735; 83970; 84156; 84300

== ENCOUNTER 2024-08-07 13:47 | Outpatient (AMB) | payer MEDICARE, SELFPAY ==
[2024-08-07 13:52] VITALS: BP 136/68; PULSE 86; O2SAT 96; BMI 30.2
--- NOTE | 2024-08-07 13:52 | HO.NEPHOV ---
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 h/o pain in his feet most likely from neuropathy. He was unable to tolerate Lyrica in the past. He was given 100 mg which he did not tolerate. Continues to have some numbness in his feet No urine symptoms. No nausea vomiting. 06/26/2024. Overall doing well. Recently seen by Cardiology. He was discharged after echocardiogram. Trulicity has been discontinued and currently on Jardiance for the last few weeks. He is not too happy with this. Blood sugar has been suboptimal. At home blood pressures have been acceptable. 08/07/24 Creatinine has bumped up to 1.98 Jardiance was stopped 1 week ago Back on Trulicity [facility] Social History Alcohol intake: former Physical Exam Vital Signs: Last Vital Signs Pulse 86 08/07/24 13:52 BP 136/68 08/07/24 13:52 Pulse Ox 96 08/07/24 13:52 Oxygen Delivery Method Room Air 08/07/24 13:52 BMI result Body Mass Index 30.2 Const General: comfortable; No acute distress Orientation/consciousness: patient oriented x3 Eyes General: appearance normal, both eyes and all related structures Visual Valiente: normal visual valiente by confrontation Neck Neck: Yes supple and Yes no JVD Resp Effort & Inspection: normal respiratory effort and respiratory effort not decreased Auscultation: rhonchi Cardio Palpation: no palpable S3 and no palpable S4 Heart sounds: no rubs GI Inspection: Yes normal to inspection Palpation (GI): Soft to palpation Percussion: Yes normal to percussion Auscultation: normal bowel sounds General: Yes no CVA tenderness Back/Spine/Pelvis Back: no CVA tenderness Skin General skin exam: no petechiae and no purpura Neuro General: patient oriented x3 and no focal motor deficits Extrem General: No clubbing and No edema Results Reviewed Nephrology Results: Hgb 15.1 g/dl (14.0-18.0) 03/13/23 WBC 8.3 X10*3/uL (4.8-10.8) 03/13/23 Plt Count 233 X10*3/uL (160-400) 03/13/23 Sodium 139 mmol/L (135-145) 08/01/24 Potassium 4.7 mmol/L (3.3-5.1) 08/01/24 Chloride 109 mmol/L (96-108) H 08/01/24 Carbon Dioxide 23 mmol/L (22-29) 08/01/24 BUN 34 mg/dL (9-16) H 08/01/24 Creatinine 1.98 mg/dL (0.5-1.4) H 08/01/24 Calcium 9.0 mg/dL (8.4-10.2) 08/01/24 PTH Intact 120.0 pg/mL (8.7-77.1) H 08/01/24 Urine Creatinine 98.60 mg/dL 08/01/24 Protein/Creatinin Ratio 0.79 (<0.2) H 03/13/23 Renal US 07/06/24 Assessment & Plan Assessment & Plan (1) CKD (chronic kidney disease) stage 3, GFR 30-59 ml/min: Code(s): N18.30 - Chronic kidney disease, stage 3 unspecified Category: Medical (2) Diabetes mellitus with chronic kidney disease: Code(s): E11.22 - Type 2 diabetes mellitus with diabetic chronic kidney disease Category: Medical Plan Elderly man CKD 3 in the setting of longstanding diabetes mellitus. Recent bump in creatinine increased from 1.6 up to 1.8. and up to 1.98 The timing corresponds to antonieta initiation of JArdiance ? ALEXA due to Jardiance vs component of hypoperfusion. Recheck renal panel in 4weeks. ultrasonogram - No obstruction. Recent Urine Pro: cr was 0.79 Goal is to slow the progression of renal disease. Continue to avoid nephrotoxic agents including NSAIDs. Blood pressure is well controlled Encouraged him to check his blood pressure at home and to call me with readings. Might have to readjust his medications based on home readings Maintain blood pressure less than 130 mm of mercury. . Regarding Metformin: Repeat creatinine in 3-4 weeks. If no improvement, would discontinue Metformin due to the risk of Lactic acidosis Orders: Orders Basic Metabolic Panel 3 Weeks N18.30 - Chronic kidney disease, stage 3 unspecified Coding Level of Care Code Est Pt Level 4 (15192) Diagnoses CKD (chronic kidney disease) stage 3, GFR 30-59 ml/min N18.30 Diabetes mellitus with chronic kidney disease E11.22
== END 2024-08-07 14:16 | disposition home or self-care (01) ==
LOC: HO.HKA 13:48
PROVIDERS: PCP Internal Medicine; Visit Provider Internal Medicine Hypertension Specialist
DX: E11.22 Type 2 diabetes mellitus with diabetic chronic kidney disease (principal); N18.30 Chronic kidney disease, stage 3 unspecified
CPT/HCPCS: 99214

== ENCOUNTER → 2024-08-07 13:47 | Outpatient (BNVA) | payer MEDICARE, SELFPAY | PROVIDERS: PCP Internal Medicine; Visit Provider Internal Medicine Hypertension Specialist | DX: E11.22 Type 2 diabetes mellitus with diabetic chronic kidney disease (principal); I12.9 Hypertensive chronic kidney disease with stage 1 through stage 4 chronic kidney disease, or unspecified chronic kidney disease; N18.30 Chronic kidney disease, stage 3 unspecified | CPT/HCPCS: 99212 ==

== ENCOUNTER 2024-08-25 13:16 | Outpatient (REF) | payer MEDICARE, SELFPAY ==
[2024-08-25 14:02] LABS: Anion Gap 9 (12-20); Blood Urea Nitrogen 39 mg/dL (9-16); Calcium 9.2 mg/dL (8.4-10.2); Carbon Dioxide 24 mmol/L (22-29); Chloride 108 mmol/L (96-108); Estimated Glomerular Filt Rate 33; Glucose Random 83 mg/dL (60-115); Potassium 5.1 mmol/L (3.3-5.1); Sodium 136 mmol/L (135-145)
== END 2024-08-25 13:17 | disposition home or self-care (01) ==
LOC: HO.LAB 13:16
PROVIDERS: PCP Internal Medicine; Visit Provider Internal Medicine Hypertension Specialist
DX: N18.30 Chronic kidney disease, stage 3 unspecified (principal)
CPT/HCPCS: 36415; 80048

== ENCOUNTER 2024-10-20 09:50 | Outpatient (REF) | payer MEDICARE, SELFPAY ==
--- OUTSIDE RECORDS SUMMARY | 2024-10-20 09:56 | XMS_ITS | Continuity of Care Document ---
Author Organization [facility] [address] [facility] [address] [place] [address] Phone [phone] Social History Type Date Description Comments Sex Unknown Medical Devices Description No Information Available Encounters Description No Information Available Assessments Description No Information Available Plan of Treatment No Information Available Functional Status Description No Information Available Mental Status Description No Information Available Referrals Description No Information Available
--- OUTSIDE RECORDS SUMMARY | 2024-10-20 09:56 | XMS_ITS ---
Author Organization [facility] Address [address] [place] [address] Care Team Providers Care Pipe Liner Name Role Phone Sander Heredia MD Primary Care Provider Levar Oglesby Unavailable [phone] Roel Woods Unavailable [phone] REASON FOR VISIT Needs Diab shoe Rx Medications Medication SIG (Take, Route, Frequency, Duration) Notes Start Date End Date Status Extra Depth Diabetic Shoes with 3 Pair Custom heat-molded multi-density innersoles for 1 year Dx: Active Encounters Encounter Location Date Provider Diagnosis [facility] [address] [place] [phone] 05/27/2023 Roel Woods Type 2 diabetes mellitus with diabetic polyneuropathy E11.42 Assessments Encounter Date Diagnosis (ICD Code) Assessment Notes Treatment Notes Treatment Clinical Notes Section Notes 05/27/2023 Type 2 diabetes mellitus with diabetic polyneuropathy (ICD-10 - E11.42) Plan Of Treatment Medication Medication Name Sig Start Date Stop Date Notes Extra Depth Diabetic Shoes w ith 3 Pair Custom heat-molded multi-density innersoles for 1 year Dx: Next Appt Details Provider Name:Levar Suarez , 09/03/2025 08:30:00 AM, [address], [phone], Progress Notes * Jame PITTSDOB: [birth year] (82 yo M)Acc No.[id number]:05/27/2023 Patient:?Jame Pitts :1940???Age:82 Y???Sex:Male Address:[address] [place] [address], [place], [phone] * Refills? Refill Extra Depth Diabetic Shoes with 3 Pair Custom heat-molded multi-density innersoles, 1 pair shoes/3 sets inserts, for 1 year, Dx:, Refills=0 * true * Date:? Generated for Cece gibson/Lilli/eTransmitting on:?10/20/2024 09:55 AM EST
--- OUTSIDE RECORDS SUMMARY | 2024-10-20 09:56 | XMS_ITS | Patient Health Record ---
Author Organization [facility] [place] [address] [place] [address] Care Team Providers Care Caramel Cutter Machine Name Role Phone Sander Heredia MD Primary Care Provider Levar Oglesby Unavailable [phone] Allergies No Known Allergies Results Component Value Reference Range Notes HEMOGLOBIN A1C (GLYCOHEMOGLO BIN) Reviewed date:09/06/2024 09:18:31 AM Interpretation: Performing Lab: Notes/Report: TOTAL HEMOGLOBIN (HGBA1C) 7.5 Reason For Referral No Information Medications Medication SIG (Take, Route, Fr equency, Duration) Notes Start Date End Date Status FreeStyle Test - USE TO TEST BLOOD BENJAMIN GAR BID In Vitro for 90 Active metFORMIN HCl Not-Ta [facility] Active glipiZIDE XL 5 MG 1 tablet Orally Once a day 08/17 Active Lantus Active Lisinopril 5 MG 1 tablet Orally Once a day 017 Active Immunizations Vaccine Route Administration Date Status Comme nts Influenza Unknown 07/06/2017 Administered Social History Tobacco Use: Social History Observation Description Date Details (start date - stop date) Never Smoker NA - NA Tobacco Use/Smoking Question Answer Notes Are you a: nonsmoker Additional Findings: Tobacco Non-User Current no n-smoker Alcohol Screen Question Answer Notes Did you have a drink containing alcohol in the p ast year? No Points 0 Interpretation Negative Tobacco use other than smoking: Question Answer Notes Are you an other tobacco user? No Problems Problem Type SNOMED Code ICD Code Onset Dates Problem Status W/U Status Risk Notes Problem Acquired hammer toe of right foot (8903396370595180 ) Other hammer toe(s) (acquired), right foot (M20.41) Active confirmed Response to treatment, Anabelle mcgarry Problem Acquired hammer toe of left foot (7834454868633079 ) Other hammer toe(s) (acquired), left foot (M20.42) Active confirmed [facility] Problem Polyneuropathy due to type 2 diabetes mellitus (031286001) Type 2 diabetes mellitus with diabetic polyneuropathy (E11.42) Active confirmed Problem [id number] Hallux valgus of right foot (M20.11) Active confirmed Vital Signs Blood pressure diastolic 77 mm Hg 09/06/2024 Height 5 ft 6 in in 09/06/2024 Blood pressure systolic 130 mm Hg 09/06/2024 Weight 188 lbs 09/06/2024 BMI 30.34 kg/m2 09/06/2024 Procedures Procedure Date Ordered Date Performed Result Body Sit e 29082-SLQTXTQ NAIL, 6 OR MORE 09/06/2024 N/A 96278-YPAR SKIN LESIONS, OVER 4 09/06/2024 N/A Encounters Encounter Location Date Provider Diagnosis [facility] [address] [address] 09/06/2024 Levar Suarez Type 2 diabetes mellitus with diabetic polyneuropathy E11.42 ; Tinea unguium B35.1 ; Other hammer toe(s) (acquired), right foot M20.41 ; Other hammer toe(s) (acquired), left foot M20.42 ; Muscle cramp, nocturnal R25.2 ; Hallux valgus of right foot M20.11 and Hallux limitus of right foot M20.5X1 Assessments Encounter Date Diagnosis (ICD Code) Assessment Notes Treatment Notes Treatment Clinical Notes Section Notes 09/06/2024 Type 2 diabetes mellitus with diabetic polyneuropathy (ICD-10 - E11.42) 09/06/2024 Tinea unguium (ICD-10 - B35.1) 09/06/2024 Other hammer toe(s) (acquired), right foot (ICD-10 - M20.41) Response to treatment,Impro vement 09/06/2024 Other hammer toe(s) (acquired), left foot (ICD-10 - M20.42) Response to treatment,Impro vement 09/06/2024 Muscle cramp, nocturnal (ICD-10 - R25.2) 09/06/2024 Hallux valgus of right foot (ICD-10 - M20.11) 09/06/2024 Hallux limitus of right foot (ICD-10 - M20.5X1) Plan Of Treatment Pending Test Test Name Order Date 33414-VXFMUDT NAIL, 6 OR MORE 09/06/2024 59999-PVBQEPG NAIL, 1-5 08/17/2017 98249-IWJA SKIN LESIONS, OVER 4 04/04/20 21 56645-BJTP SKIN LESIONS, OVER 4 03/20/20 22 81365-BMLE SKIN LESIONS, OVER 4 09/06/20 24 16919-HDUG SKIN LESIONS, OVER 4 08/17/20 17 44584-VGLF NAIL(S) 08/17/2017 Next Appt Details Provider Name:Levar Suarez , 09/03/2025 08:30:00 AM, [address] [facility], [address], [place], [address], Insurance Providers Payer Name Payer Address Payer Phone Subscriber Number Group Number Insured Name Patient Relationship to Insured Coverage Start Date Coverage End Date [employer] [facility] [address] [place] [address] [phone] [id number] Jame Hurt Self - patient is the insured Medical (General) History Medical History History ICD Code Diabetic Hypertension Surgical History Surgery Date(Month/Year) Back Surgery Hospitalization History Reason Date(Month/Year) [facility]20[facility]
[2024-10-20 11:12] LABS: Anion Gap 12 (12-20); Blood Urea Nitrogen 28 mg/dL (9-16); Calcium 9.1 mg/dL (8.4-10.2); Carbon Dioxide 25 mmol/L (22-29); Chloride 106 mmol/L (96-108); Estimated Glomerular Filt Rate 33; Glucose Random 268 mg/dL (60-115); Potassium 5.2 mmol/L (3.3-5.1); Sodium 138 mmol/L (135-145)
== END 2024-10-20 09:51 | disposition home or self-care (01) ==
LOC: HO.10HDL 09:50
PROVIDERS: Visit Provider Internal Medicine Hypertension Specialist
DX: N18.30 Chronic kidney disease, stage 3 unspecified (principal)
CPT/HCPCS: 36415; 80048

== ENCOUNTER 2024-10-31 09:40 | Outpatient (AMB) | payer MEDICARE, SELFPAY ==
[2024-10-31 09:39] VITALS: BP 160/74; PULSE 77; O2SAT 93; BMI 29.9
--- NOTE | 2024-10-31 09:39 | HO.NEPHOV_ITS ---
Vital Signs 10/31/24 09:39 10/31/24 09:53 Height 5 ft 6 in Weight 185 lb BMI 29.9 BP 160/74 H 130/68 Blood Pressure Location Rt brachial Rt brachial Position Sitting Sitting Pulse 77 Pulse Source Pulse Oximeter Pulse Oximetry (%) 93 Oxygen Delivery Method Room Air Intake Visit Reasons: CKD/ Conf Manager Corporate Required: No Accompanied by: Self / Same As Patient Allergies No Known Allergies Allergy (Verified 10/31/24 09:41) Medication List - Last Reconciled 10/31/24 by Lj Bowen MD dulaglutide (Trulicity) 0.75 mg subcut QWEEK glipizide ER 10 mg PO BID insulin glargine (Lantus Solostar U-100 Insulin) 15 units subcut QAM lisinopril 10 mg PO DAILY HPI Comments Details: Elderly man with history of longstanding hypertension diabetes mellitus with CKD. h/o pain in his feet most likely from neuropathy. He was unable to tolerate Lyrica in the past. He was given 100 mg which he did not tolerate. Continues to have some numbness in his feet No urine symptoms. No nausea vomiting. 06/26/2024. Overall doing well. Recently seen by Cardiology. He was discharged after echocardiogram. Trulicity has been discontinued and currently on Jardiance for the last few weeks. He is not too happy with this. Blood sugar has been suboptimal. At home blood pressures have been acceptable. 08/07/24 Creatinine has bumped up to 1.98 Jardiance was stopped 1 week ago Back on Trulicity 10/31/24 On trulicity BS is better controlled. Off MEtformin Cr stays at 1.9 [facility] Social History Alcohol intake: former Physical Exam Vital Signs: Last Vital Signs Pulse 77 10/31/24 09:39 BP 160/74 H 10/31/24 09:39 Pulse Ox 93 10/31/24 09:39 Oxygen Delivery Method Room Air 10/31/24 09:39 BMI result Body Mass Index 29.9 Comfortable Neck supple no JVD. Lungs entry equal no rales. Heart S1-S2 heard no gallop or rub. Abdomen soft nontender. Neuro alert awake oriented. No asterixis. Extremities no edema. Results Reviewed Nephrology Results: Sodium 138 mmol/L (135-145) 10/20/24 Potassium 5.2 mmol/L (3.3-5.1) H 10/20/24 Chloride 106 mmol/L (96-108) 10/20/24 Carbon Dioxide 25 mmol/L (22-29) 10/20/24 BUN 28 mg/dL (9-16) H 10/20/24 Creatinine 1.97 mg/dL (0.5-1.4) H 10/20/24 Calcium 9.1 mg/dL (8.4-10.2) 10/20/24 PTH Intact 120.0 pg/mL (8.7-77.1) H 08/01/24 Urine Creatinine 98.60 mg/dL 08/01/24 Renal US 07/06/24 Assessment & Plan Assessment & Plan (1) CKD (chronic kidney disease) stage 3, GFR 30-59 ml/min: Code(s): N18.30 - Chronic kidney disease, stage 3 unspecified Category: Medical (2) Diabetes mellitus with chronic kidney disease: Code(s): E11.22 - Type 2 diabetes mellitus with diabetic chronic kidney disease Category: Medical Plan Elderly man CKD 3 in the setting of longstanding diabetes mellitus. Recent bump in creatinine increased from 1.6 up to 1.8. and up to 1.98 The timing corresponds to antonieta initiation of JArdiance ? ALEXA due to Jardiance vs component of hypoperfusion. ultrasonogram - No obstruction. Creatinien unchanged over 4 months Recent Urine Pro: cr was 0.79 Goal is to slow the progression of renal disease. Continue to avoid nephrotoxic agents including NSAIDs. Blood pressure is well controlled Encouraged him to check his blood pressure at home and to call me with readings. Might have to readjust his medications based on home readings Maintain blood pressure less than 130 mm of mercury. . Mild hyperkalemia REsolved ( per pt- repeat was normal) Encouraged low K diet Elevated iPTH Mild SHPT Shall watch Coding Level of Care Code Est Pt Level 4 (57391) Diagnoses CKD (chronic kidney disease) stage 3, GFR 30-59 ml/min N18.30 Diabetes mellitus with chronic kidney disease E11.22
[2024-10-31 09:53] VITALS: BP 130/68
--- OUTSIDE RECORDS SUMMARY | 2024-10-31 10:36 | XMS_ITS | Clinical Summary ---
Author Organization [facility] Address [address] [place] [address] Phone Care Team Providers Care Electric Milkers Installer Name Role Phone Sander Heredia MD Primary Care Provider [phone] Allergies No known active allergies Medications glipiZIDE (GLUCOTROL) 5 MG tablet Take 1 tablet by mouth 1 (one) time each day Active insulin glargine (Lantus) 100 UNIT/ML injection Inject 15 Units under the skin 1 (one) time each day Active lisinopril 5 MG tablet Take 1.5 tablets by mouth 1 (one) time each day Active metFORMIN XR (GLUCOPHAGE-XR) 500 MG 24 hr tablet 08/26/2021 Active Active Problems Problem Noted Date Diagnosed Date Chronic kidney disease 09/10/2021 Malignant hypertensive chronic kidney disease Essential hypertension 09/10/2021 Resolved Problems Problem Noted Date Diagnosed Date Resolved Date Renal disorder due to type 1 diabetes mellitus 09/10/2021 09/17/2022 Immunizations Name Administration Dates Next Due Pneumococcal Polysaccharide 04/12/2014 Family History Medical History Relation Comments Cancer Mother Relation Status Comments Father Unknown Mother Unknown Social History Tobacco Use Types Packs/Day Years Used Date Smoking Tobacco: Never Smokeless Tobacco: Never Tobacco Cessation:Counseling Given: Not Answered Alcohol Use Standard Drinks/Week Comments No 0 (1 standard drink = 0.6 oz pur e alcohol) Sex and Gender Information Value Date Recorded Sex Assigned at Not on file Legal Sex Male 5:09 PM EST Gender Identity Not on file Sexual Orientation Not on file Last Filed Vital Signs Vital Sign Reading Time Taken Comments Blood Pressure 132/70 03/18/2023 1:33 PM EDT Pulse 73 03/18/2023 1:33 PM EDT Temperature - - Respiratory Rate - - Oxygen Saturation 95% 03/18/2023 1:33 PM EDT Inhaled Oxygen Concentration - - Weight 84.6 kg (186 lb 9.6 oz) 09/17/2022 12:50 PM EST Height 165.1 cm (5' 5 ) 07/13/2019 12:01 PM EDT Body Mass Index 31.05 07/13/2019 12:01 PM EDT Plan of Treatment Health Maintenance Due Date Last Done Comments Pneumococcal Vaccine: 65+ Ye ars (2 of 2 - PCV) 04/12/2015 04/12/2014 Diabetes: Hemoglobin A1C 11/11/2020 Diabetes: Ophthalmology Exam 11/11/2020 Diabetes: Pedal Pulse Checked 11/11/2020 Diabetes: Sensory Foot Exam 11/11/2020 Diabetes: Visual Foot Exam 11/11/2020 Influenza Vaccine (#1) 2024 Hepatitis B Vaccine Aged Out No longe r eligible based on patient's age to complete this topic Insurance [facility] Care Teams Electric Milkers Installer Relationship Specialty Start Date End Date Sander Heredia MD [id number] [facility] - General 10/21/20
--- OUTSIDE RECORDS SUMMARY | 2024-10-31 10:36 | XMS_ITS | Continuity of Care Document ---
Author Organization [facility] [address] [place] [address] Phone [phone] Social History Type Date Description Comments Sex Unknown Medical Devices Description No Information Available Encounters Description No Information Available Assessments Description No Information Available Plan of Treatment No Information Available Functional Status Description No Information Available Mental Status Description No Information Available Referrals Description No Information Available
== END 2024-10-31 09:57 | disposition home or self-care (01) ==
PROVIDERS: PCP Internal Medicine; Visit Provider Internal Medicine Hypertension Specialist
DX: E11.22 Type 2 diabetes mellitus with diabetic chronic kidney disease (principal); N18.30 Chronic kidney disease, stage 3 unspecified
CPT/HCPCS: 99214

== ENCOUNTER → 2024-10-31 09:40 | Outpatient (BNVA) | payer MEDICARE, SELFPAY | PROVIDERS: PCP Internal Medicine; Visit Provider Internal Medicine Hypertension Specialist | DX: E11.22 Type 2 diabetes mellitus with diabetic chronic kidney disease (principal); I12.9 Hypertensive chronic kidney disease with stage 1 through stage 4 chronic kidney disease, or unspecified chronic kidney disease; N18.30 Chronic kidney disease, stage 3 unspecified | CPT/HCPCS: 99212 ==

== ENCOUNTER 2025-02-14 08:53 | Outpatient (AMB) | payer MEDICARE, SELFPAY ==
[2025-02-14 08:57] VITALS: BP 134/76; PULSE 78; TEMP 36.6; O2SAT 98; BMI 29.9
--- NOTE | 2025-02-14 08:57 | MHC.PC.OV ---
Vital Signs 02/14/25 08:57 Height 5 ft 6 in Weight 185 lb BMI 29.9 BP 134/76 Blood Pressure Location Lt brachial Position Sitting Pulse 78 Pulse Source Pulse Oximeter Temp 97.8 F Temp Source Axillary Pulse Oximetry (%) 98 Oxygen Delivery Method Room Air Intake Visit Reasons: Routine Casing Worker Required: No Accompanied by: Self / Same As Patient Allergies No Known Allergies Allergy (Verified 02/14/25 09:20) Medication List - Last Reconciled 02/14/25 by Lv Beard MD dulaglutide (Trulicity) 0.75 mg subcut QWEEK glipizide ER 10 mg PO BID insulin glargine (Lantus Solostar U-100 Insulin) 15 units subcut QAM lisinopril 10 mg PO DAILY Tobacco use date assessed: 02/14/25 Fall risk assessment: No Falls in past year Last assessed Fall Risk: 02/14/25 Dental Screening Dental Screen Date: 02/14/25 Did you have a dental visit in the last 12 months?: Yes Did you have a dental problem in the last 6 months where you did not have access to dental care?: No [facility] Medical History (Updated 02/14/25 @ 09:21 by Lv Beard MD) CKD (chronic kidney disease) stage 3, GFR 30-59 ml/min Diabetes mellitus with chronic kidney disease Surgical History History of colonoscopy (~06/23/18) Family History (Updated 02/14/25 @ 09:07 by Shital Barnhart MA) Mother No problems noted. Father No problems noted. Social History Housing: House Alcohol intake: former Patient Tobacco Use Status: Never used Tobacco e-Cigarette/Vaping Use: Never Used service: No Current occupational status: retired Cognitive needs: No Hearing needs: No Vision needs: Yes (reading glasses) Questionnaire PHQ-9 Over the last 2 weeks, how often have you been bothered by any of the following problems? 1. Little interest or pleasure in doing things: not at all 2. Feeling down, depressed, or hopeless: not at all 3. Trouble falling or staying asleep, or sleeping too much: not at all 4. Feeling tired or having little energy: not at all 5. Poor appetite or overeating: not at all 6. Feeling bad about yourself - or that you are a failure or have let yourself or your family down: not at all 7. Trouble concentrating on things, such as reading the newspaper or watching television: not at all 8. Moving or speaking so slowly that other people could have noticed. Or the opposite - being so fidgety or restless that you have been moving around a lot more than usual: not at all 9. Thoughts that you would be better off or of hurting yourself in some way: not at all Total score: 0 Source: Developed by Drs. Tommy Chester, Shirin Barrios, Bjorn Medel and colleagues, with an educational carlos from [employer]. Thrive Questionnaire Date Thrive assessed: 02/14/25 I am a: Patient Within the past 12 months, did the food you bought not last and you didn't have the money to get more?: Never true Within the past 12 months, did you worry whether your food would run out before you got money to buy more?: Never true Do you have trouble paying for medicines?: No Do you have trouble getting transportation to medical appointments?: No Do you have trouble paying your heating and electricity bill?: No Do you have trouble taking care of your child, family member or friend?: No Do you have trouble with day-to-day activities such as bathing, preparing meals, shopping, managing finances, etc.?: No Are you currently unemployed and looking for a job?: No Are you interested in more education?: No THRIVE Score: 0 AUDIT C Alcohol Use Questionnaire (AUDIT-C) 1. How often do you have a drink containing alcohol?: Never 3. How often do you have six or more drinks on one occasion?: Never Total Score: 0 ALEXANDRA-7 AMB Questionnaire ALEXANDRA-7 Date ALEXANDRA - 7 assessed: 02/14/25 Feeling nervous, anxious, or on edge: 0 = Not at all Not being able to stop or control worryin = Not at all Worrying too much about different things: 0 = Not at all Trouble relaxin = Not at all Being so restless that it is hard to sit still: 0 = Not at all Becoming easily annoyed or irritable: 0 = Not at all Feeling afraid as if something awful might happen: 0 = Not at all Total ALEXANDRA-7 score (0-4 normal; 5-9 mild; 10-14 moderate; 15-21 severe): 0 Source: Developed by Drs. Tommy Chester, Shirin Barrios, Bjorn Medel and colleagues, with an educational carlos from [employer]. Physical exam (Primary Care) Vital Signs: Last Vital Signs Temp 97.8 F 02/14/25 08:57 Pulse 78 02/14/25 08:57 BP 134/76 02/14/25 08:57 Pulse Ox 98 02/14/25 08:57 Oxygen Delivery Method Room Air 02/14/25 08:57 Care Plan Goal for BP management: BP is in range BMI result Body Mass Index 29.9 Tobacco/Smoking Status: Tobacco use Status Tobacco use date assessed 02/14/25 02/14/25 08:59 Patient Tobacco Use Status Never used Tobacco 02/14/25 08:59 e-Cigarette/Vaping Use Never Used 02/14/25 08:59 PHQ-9: PHQ-9 Score PHQ-9: Total score 0 02/14/25 09:07 Thrive Assessment: Date of Thrive Assessment Date Thrive assessed 02/14/25 02/14/25 08:59 Advance Care Planning discussion: Exists, not on file Date of discussion: 02/14/25 Coding Level of Care Code New Pt Level 4 (98635) Complex EM visit Add On G2211 Diagnoses Diabetes mellitus with chronic kidney disease E11.22 CKD (chronic kidney disease) stage 3, GFR 30-59 ml/min N18.30 Additional Codes Vital Signs *Quality* - Advance Care Planning discussion: Exists, not on file ([id number]) Assessment & Plan Assessment & Plan (1) Diabetes mellitus with chronic kidney disease: Code(s): E11.22 - Type 2 diabetes mellitus with diabetic chronic kidney disease Category: Medical Plan: Patient sees an major appliance assembly supervisor at [facility]. She has been reviewing his labs and ordering all his prescriptions. (2) CKD (chronic kidney disease) stage 3, GFR 30-59 ml/min: Code(s): N18.30 - Chronic kidney disease, stage 3 unspecified Category: Medical Plan: Patient follows up with a credit associate. Plan History of Present Illness The patient is an 84-year-old male presenting with nocturnal leg cramps, primarily occurring in his feet. He experiences these cramps during the night, usually awakening between 2:00 and 3:00 AM, although he has no issues with foot pain or mobility during the day. The symptom onset is unspecified in duration but is described as severe when it occurs. The patient's sleeping schedule typically involves retiring around 9:00 PM. He consumes virgin olive oil and lemon juice but has not linked these to changes in symptoms. The patient also has Type 2 Diabetes Mellitus, which is regularly managed with an major appliance assembly supervisor. His recent fasting blood glucose measure was 91 mg/dL. 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 - Lives alone following the loss of his . - No tobacco or alcohol use. - Drives routinely, including at night, without difficulty post bilateral eye operation. - Father of four daughters, some of whom work in the medical field. Review of Systems - Musculoskeletal: Reports nocturnal leg cramps. - Endocrine: Denies significant issues in diabetes management. - Neurological: Denies any daytime leg pain or functional impairment. - Eyes: Post-operative improvement leading to perfect vision; no current vision complaints. - General/Constitutional: Reports good daytime mobility and energy levels. Physical Exam General: Cooperative and healthy appearing Nutritional Appearance: Well nourished Orientation/consciousness: Patient oriented x3 Limitations: No limitations Head: Normal to inspection General: Appearance normal, both eyes and all related structures Neck: Normal visual inspection Chest: Normal palpation of entire chest wall Respiratory: N ormal respiratory effort Neurology: Patient oriented x3, no neurological deficits noted. Results - Labs: Most recent fasting blood glucose level of 91 mg/dL, as reported by the patient. Plan 1. Nocturnal Leg Cramps - Advise patient to hydrate with electrolytes before sleep and use Coenzyme Q10 supplement. 2. Type 2 Diabetes Mellitus - Continue monitoring blood glucose and follow up with the major appliance assembly supervisor as scheduled. Discussion Notes During the consultation, I discussed the management of the patient's nocturnal leg cramps, recommending the use of electrolytes before bedtime and Coenzyme Q10 as a supplement to aid in reducing cramps. We also reviewed the patient's diabetes management, confirming stable blood sugar levels, with endocrinological assessments every six months for routine management. I highlighted the importance of continuing with current blood glucose practices and dietary controls, leveraging his disciplined lifestyle to maintain good diabetic control. The patient understood the discussed treatments and interventions, including emphasis on a cost-benefit analysis of continuing current dietary supplements. Patient Instructions - Take electrolytes before bed to help with cramps. - Try Coenzyme Q10 tablets from a pharmacy for cramps. - Continue routine blood sugar checks and diet for diabetes. - Come back if cramps worsen or new symptoms develop.
--- OUTSIDE RECORDS SUMMARY | 2025-02-14 09:20 | XMS_ITS ---
[facility] Organization [facility] Address [address] [place] [address] Care Team Providers Care Breast Surgeon Name Role Phone Yan SAINI, Sander Primary Care Provider Levar Oglesby Unavailable [phone] Allergies No Known Allergies REASON FOR VISIT At Risk Footcare, Toe Irritation, Foot/Leg pain Medications Medication SIG (Take, Route, Fr equency, Duration) Notes Start Date End Date Status FreeStyle Test - USE TO TEST BLOOD BENJAMIN GAR BID In Vitro for 90 Active metFORMIN HCl Not-Ta devyn glipiZIDE XL 5 MG 1 tablet Orally Once a day 08/17 Active Lantus Active Lisinopril 5 MG 1 tablet Orally Once a day 017 Active Trulicity Active Social History Tobacco Use: Social History Observation Description Date Details (start date - stop date) Never Smoker NA - NA Tobacco Use/Smoking Question Answer Notes Are you a: nonsmoker Additional Findings: Tobacco Non-User Current no n-smoker Tobacco use other than smoking: Question Answer Notes Are you an other tobacco user? No Problems Problem Type SNOMED Code ICD Code Onset Dates Problem Status W/U Status Risk Notes Problem Polyneuropathy due to type 2 diabetes mellitus (940290349) Type 2 diabetes mellitus with diabetic polyneuropathy (E11.42) Active confirmed Problem Acquired hammer toe of right foot (9252325774184560 ) Other hammer toe(s) (acquired), right foot (M20.41) Active confirmed Response to treatment, Improvemen t Problem Acquired hammer toe of left foot (8307656911206167 ) Other hammer toe(s) (acquired), left foot (M20.42) Active confirmed Response to treatment, Improvemen t Problem [id number] Hallux valgus of right foot (M20.11) Active confirmed Vital Signs Height 5 ft 6 in in 09/06/2024 Weight 188 lbs 09/06/2024 BMI 30.34 kg/m2 09/06/2024 Blood pressure systolic 130 mm Hg 09/06/20 24 Blood pressure diastolic 77 mm Hg 024 Procedures Procedure Date Ordered Date Performed Result Body Sit e 37166-[id number] NAIL, 6 OR MORE 09/06/2024 N/A 06504-PBSC SKIN LESIONS, OVER 4 09/06/2024 N/A Encounters Encounter Location Date Provider Diagnosis [facility] [address] [address] 09/06/2024 Levar Suarez Type 2 diabetes mellitus [...] Treatment Pending Test Test Name Order Date [id number] NAIL, 6 OR MORE 09/06/2024 10875-QYQB SKIN LESIONS, OVER 4 09/06/20 24 Next Appt Details Follow Up: 1 Year, Reason: Provider Name:Levar Suarez , 09/03/2025 08:30:00 AM, [address] [facility], [address], [place], [address], Procedure Notes * Category Sub-Category Detail Notes Debride Nail 6-10 Nail debridement Performance o f this nail treatment by a nonprofessional would put this patients foot and overall health at risk. Therefore, debridement to affected nail(s), as described in exam, was performed extensively to reduce/remove overall nail length, girth, thickness, subungual debris, and necrotic tissue, by manual and/or electrical means through the use of a nail nipper and/or dremel-type snag grinder, to a more viable healthy nail plate or bed tissue 6-10 nails in total. Silver nitrate was used for any petechial bleeding as necessary. Definitive antifungal treatment options, both pharmaceutical and surgical, have been reviewed and discussed with the patient. The patient solely prefers the use of intermittent/as needed professional debridement services for their nail condition and understands the need for additional periodic treatments to maintain effectiveness in symptomatic relief - 90861 Keratoma Treatment Parring or Cutting o f Benign Hyperkeratotic Lesion(s) (-57) More than 4 Lesions - The Benign hyperkeratotic lesions, ( 8) in total, locations as stated and described in exam, were pared, and/or cut utilizing a sterile 15 blade, tissue nippers, and/or power dremel instrumentation - 46172 Progress Notes * Jame PITTSDOB: [birth year] (84 yo M)Acc No.[id number]:09/06/2024 Progress Note Patient:?Jame PITTS Provider:?Levar Suarez DPM :1940???Age:83 Y???Sex:Male Dwain e:09/06/2024 Address:[address] [place], [place] [id number] Pcp:Sander Heredia MD Subjective: * Chief Complaints: * ???At Risk FootcareToe Irrit ationFoot/Leg pain * HPI: ???At Risk footcare:?Pt States Last PCP Visit:?Date?06/28/2024 ???Toe pain:?Treatments:?Rx shoes .?Foot Pain:?Nature:?tightness, cramping, pulling, aching.?Location:?Foot, Leg , B/L.?Duration:?several weeks.?Onset:?sudden.?Course:?worse.?Aggravated:?especially toward the end of the day/at rest/at night.? * ROS:?General/Constitutional:?Nausea?denies.?Vomiting?denies.?Hunger Thirst?denies.?Loss appetite?denies.?Chills?denies.?Fatigue?denies.?Fever?denies.?Night Sweats?denies.?Unexplained weight loss?denies.?Unexplained weight gain?denies.?HEENTM:?Dentures?denies.?Dizziness?denies.?Glasses/contacts?denies.?Retinopathy?den ies.?Blurred/double vision?denies.?TMJ?denies.?Discharge/drainage?denies.?Implants?denies.?Sore throat?denies.?Dental implants?denies.?Hard of hearing ?denies.?Difficulty chewing/swallowing/speaking?denies.?Nose bleeds?denies.?Sore mouth?denies.?Respiratory:?On O xygen?denies.?Pneumonia/pleurisy?denies.?Bronchitis?denies.?Emphysema?denies.?Co ughing?denies.?Cough blood?denies.?Shortness of breath?denies.?Wheezing?denies.?Cardiovascular:?Pacemaker?denies.?MVP?denies.?WPW?denies.?CHF?denies.?Heart attack?denies.?Septal defect?denies.?Rapid beat?denies.?Chest pain ?denies.?Atrial Fib.?denies.?Murmur/Palpitations?denies.?Gastrointestinal:?Hemorrhoids?denies.?Stomach/Abdominal pain?denies.?Dark blood stool?denies.?Irritable bowel ?denies.?Constipation?denies.?Diarrhea?denies.?Hematology:?Swelling?denies.?Clots?denies.?Varicose Veins?denies.?Bruising?denies.?Bleeding problem?denies.?Genitourinary:?Blood urine?denies.?Frequent/Painfu/urination/bladder control?denies.?Kidney stones?denies.?Infection (UTI)?denies.?Nephropathy?denies.?sex trans dis (STD)?denies.?Prostate?denies.?Musculoskeletal:?Hammertoes?admits.?Bunions?denies.?Back Pain?denies.?Muscle Cramps/ Resting?denies.?Muscle cramps / walking?denies.?Generalized aches and pains?denies.?Weakness?denies.?Integ.:?[place]?denies.?Scars?denies.?Corns/calluses?admits.?Ingrown nails?admits.?Painful nails?denies.?Open Sores?denies.?Rashes?denies.?Neurologic:?Difficulty sleeping?denies.?Brain disorder?denies.?Numbness?admits.?Balance t rouble?denies.?Confusion?denies.?Fainting/blackouts?denies.?Tingling?denies.?Williams mors?denies.? * Medical History:? * Surgical History:?Back Surge ry * Hospitalization/Major Diagno stic Procedure:?[facility] 02/2021 * Family History:?Mother: dece ased, diagnosed with Other malignant neoplasm of unspecified site.?Father: , poor circulation.?Spouse: alive.? * Social History:?Tobacco Use:?Tobacco Use/Smoking?Are you a:?nonsmoker ?Additional Findings: Tobacco Non-User?Current non-smoker ?Tobacco use other than smoking?Are you an other tobacco user??No * Medications:?TakingTrulicity glipiZIDE XL 5 MG Tablet Extended Release 24 Hour 1 tablet Orally Once a day Lantus Lisinopril 5 MG Tablet 1 tablet Orally Once a day FreeStyle Test - Strip USE TO TEST BLOOD SUGAR BID In Vitro Taking Trulicity Taking glipiZIDE XL 5 MG Tablet Extended Release 24 Hour 1 tablet Orally Once a day Taking Lantus Taking Lisinopril 5 MG Tablet 1 tablet Orally Once a day Taking FreeStyle Test - Strip USE TO TEST BLOOD SUGAR BID In Vitro Not-Taking/PRNmetFORMIN HCl Medication List reviewed and reconciled with the patientNot-Taking/PRN metFORMIN HCl Medication List reviewed and reconciled with the patient * Allergies:?N.K.D.A.yes[Zafar portillo Verified] Objective: * Vitals:?Ht: 5 ft 6 in, Wt: 1 88, BMI: 30.34, Shoe size: 9, BP: 130/77 mm Hg, BS: 99, Wt-k.28 kg. * ???Past Orders: ???Lab:HEMOGLOBIN A1C (GLYCO HEMOGLOBIN) (Order Date - 06/11/2024) (Collection Date & Time - 06/11/2024 09:17 AM) ? Value Reference Range ?TOTAL HEMOGLOBIN (HGBA1C) 7.5 * Examination: ???Ophthalmology Referral: ?DIABETES EYE EXAM?Procedure Performed:?Yes ?Date of Exam Performed?03/11/2024 ?Diabetic Retinopathy Screening:?Yes ?Retinal Screening Performed:?Yes ?Findings of Diabetic Eye Exam:?no retinopathy?Neurological: ?SENSORY:? Neurological exam demonstrates, reduced light touch sensation, reduced sharp/dull pin prick discrimination , B/L, 5.07 monofilament test performed at plantar aspects of 5 varied sites per foot shows sensation, reduced , B/L.?Nails: ?NAILS are:?Elongated, overgrown, dystrophic, lytic, greater than 3mm thick, discolored and friable with crumbly malodorous subungual debris, 1-5 B/L.?Dermatologic: ?SKIN FINDINGS:?Skin exam reveals Keratotic lesion(s) located at, Medial, IPJ, TA, Medial, IPJ, T5, SUB MTH (s), 1, B/L, SUB MTH (s), 5, B/L, Plantar Heel(s), B/L.?Vascular: ?DP PULSES (B):?2/4, B/L.?PT PULSES (B):?2/4, B/L.?CAPILLARY FILL TIME:?3 secs. per digit, B/L.?TROPHIC CONDITION-TEXTURE/ELASTICITY/TURGOR/HAIR GROWTH (B):?normal, B/L.?TEMPERTURE GRADIENT (C):?normal, warm to cool, proximal to distal, B/L, B/L.?PIGMENTATION:?normal, B/L.?EDEMA (C):?absent, B/L.?Orthopedic: ?MUSCLE STRENGTH:?5/5 all groups in a symmetrical fashion, B/L.?FOOT MORPHOLOGY:? Pain in Achilles and intrinsic foot musculature, Decreased Ankle joint dorsiflexion ROM, knee extended, B/L.?BUNION:?Dorso-Medially prominent 1st MPJ, RIGHT, (+) Pain on palpation, inflammation absent, ROM is guarded due to discomfort, Limited 1st MPJ Dorsal ROM.?DIGITAL DEFORMITIES:?Digital contracture, PIPJ, 2-5 B/L, incompl-reducible with WB, or to push-up test, no over, nor underlapping.?FOOTWEAR:?good condition, exhibit proper fit and accommodation for pedal deformities. OT were inspected and noted to be worn, but in good condition giving proper support at the present time.?General Examination: ?GENERAL APPEARANCE:?Reveals a pleasant, alert, well nourished, well- developed, well hydrated individual, who demonstrates proper attention to hygiene/body habitus, and is in no acute distress, Pt serves as own historian for office visit today.?ORIENTED:?person, place, and time.?FOOT EXAM:?Lower Extremity Neurological Exam performed:?Yes ?Visual exam of foot performed:?Yes ?Date?09/06/2024 ?Footwear Evaluation?Footwear Evaluation performed:?Yes??? Assessment: * Assessment: 1.?Type 2 diabetes mellitus with diabetic polyneuropathy - E11.42 (Primary)???2.?Tinea unguium - B35.1???3.?Other hammer toe(s) (acquired), right foot - M20.41???Specify :Chronic problem, Stable (1=3,2=4)???Notes :Response to treatment,Improvement???4.?Other hammer toe(s) (acquired), left foot - M20.42???Specify :Chronic problem, Stable (1=3,2=4)???Notes :Response to treatment,Improvement???5.?Muscle cramp, nocturnal - R25.2???Specify :Acute problem, Uncomplicated (3)???6.?Hallux valgus of right foot - M20.11???Specify :Acute problem, Complicated w/ Multiple Tx Options(4) Rx Management (4)???7.?Hallux limitus of right foot - M20.5X1???Specify :Acute problem, Complicated w/ Multiple Tx Options(4) Rx Management (4)??? Plan: * Treatment: * Procedures:?Debride Nail 6-10:?Nail debridement?Performance of this nail treatment by a nonprofessional would put this patients foot and overall health at risk. Therefore, debridement to affected nail(s), as described in exam, was performed extensively to reduce/remove overall nail length, girth, thickness, subungual debris, and necrotic tissue, by manual and/or electrical means through the use of a nail nipper and/or dremel-type snag grinder, to a more viable healthy nail plate or bed tissue 6-10 nails in total. Silver nitrate was used for any petechial bleeding as necessary. Definitive antifungal treatment options, both pharmaceutical and surgical, have been reviewed and discussed with the patient. The patient solely prefers the use of intermittent/as needed professional debridement services for their nail condition and understands the need for additional periodic treatments to maintain effectiveness in symptomatic relief - 03202.?Keratoma Treatment:?Parring or Cutting of Benign Hyperkeratotic Lesion(s)?(-57) More than 4 Lesions - The Benign hyperkeratotic lesions, ( 8) in total, locations as stated and described in exam, were pared, and/or cut utilizing a sterile 15 blade, tissue nippers, and/or power dremel instrumentation - 34303.? * Procedure Codes:?13541 DEBRI DE NAIL, 6 OR MORE, Modifiers: XS 85013 TRIM SKIN LESIONS, OVER 4, Modifiers: XS * Preventive Medicine:? ??Counseling:?Discussion:?-14: Office or other outpatient visit for the evaluation and management of an established patient, which required a medically appropriate history and/or examination and MODERATE level of DECISION MAKING for: 1 OR MORE CHRONIC PROBLEM(S) THATS WORSENING, 2 STABLE CHRONIC PROBLEMS, A NEWLY DIAGNOSED PROBLEM WITH UNCERTAIN PROGNOSIS, AN ACUTE COMPLICATED INJURY WITH MULTIPLE TREATMENT OPTIONS, OR AN ACUTE PROBLEM WITH ACCOMPANYING SYSTEMIC SYMPTOMS, THAT POSE(S) A MODERATE RISK OF MORBIDITY. THIS CONDITION MAY ALSO INCLUDE RX DRUG MANAGEMENT, OR A DECISON FOR MINOR SURGERY. The visit on the day of the encounter encompassed interpreting the data and educating the patient as to the nature of their condition, treatment options available according to their individual PMH, meds, allergies, and overall health/living conditions, as well as any potential risks or complications that may occur from a failure to adhere to, and participate in, the recommended course of therapy. The discussion included a complete verbal, and/or written explanation of the examination results, any x-rays taken, the proposed diagnosis, and outline of the treatment plan. A schedule for future care needs was also explained. The patient verbalized an understanding of the instructions at this time and agreed to be an active participant in their treatment. If the patient should think of any questions or concerns after the visit, I have encouraged the patient to call the office.?Arthritis:?The patient was counseled on the various etiologies for their Arthritis including genetic, history of injury or trauma, abnormal foot biomechanics leading to excessive joint wear, and use/overuse. We discussed the various treatment options from no treatment, to topical analgesics such as Biofreeze gel, Aspercream, Voltaren gel, Lidoderm patches, CBD oils, THC creams, and Custom-compounded topical cream preparations to natural oral products such as Glucosamine Sulfate/Chondroitin/MSM/Collegen to analgesic Tylenol, to anti-inflammatory medications such as Ibuprofen/Naproxen, and the use of oral steroids if needed. Cardiac, Kidney, and GI issues were discussed RE: potential complications of oral anti-inflammatories. We discussed several other treatment options consisting of accom shoes, supportive innersoles, AFO bracing/support, cortisone injection therapy, and surgical resection of the arthritic joint(s) or fusion reconstruction if necessary. We discussed the advantages and disadvantages of conservative (vs) surgical treamtents including pain relief, improved function/activities of daily life, return to exercise to failure, expense, systemic complications, infection, [id number], prolongued postop course. Patient questions re: the various treatment options available, their successes and potential failures, and joint terminal attack controller effects were discussed and the answers were verbally confirmed understood, Rx Custom Topical pain control compound combination therapy.?Myositis/Tendonitis:?NIGHT CRAMPS: I explained to the patient the possible etiologies of their nightly muscle cramps, including, but not limited to: foot type, shoegear, activity level/exercise routine, dehydration due to insufficient fluid intake, caffeine, or alcohol, medications such as diuretics or statins, mineral or electrolyte deficiencies in K, Mg or Ca, nerve compression, or other metabolic/neurologic disease states. We discussed the risks/benefits of the different treatment options for their painful condition including: No treatment at all, proper hydraton, proper metabolite/electrolite consumption, stretching, massage, heat, proper shoegear/arch support, Vit B12/Mg/CoQ-10 supplementation, Tonic water infused with quinine (diet if DM), pickle juice (to be used with caution w/ hx of HTN), coconut water, and adjusting the sleeping position/untuck bedding to decrease foot pressure. The advantages and disadvantages of each option were discussed and the patient's questions re: shoegear, hydration, variuos foods beneficial to prevent night cramps (bananas, pickles, potatoes), electrolyte supplementation, and consistency in home treatment regimens for optimal success, were answered to their verbally confirmed satisfaction.?Shoe Gear Counseling:?A thorough inspection of the patients Rxed shoegear and inserts was performed and findings communicated. We reviewed the many important medical advantages for adhering to regularly wearing these shoe and insert accomidative devices daily as well as reviewed the fact that a failure in accepting these recommedations may be deleterious, unable to prevent, and disadvantagely result in, many pedal complications such as skin irritation, skin ulceration, infection, and even loss of toe/foot/leg/or even their life. Time was also spent reviewing the proper footcare techniques including daily skin moisturization, daily foot inspection for any interruption in skin integrity, open lesions, or sign of infection such as redness/malodor/drainage/swelling as well as daily shoe inspection for the presence of internal foreign bodies and shoe as well as insert wear. Patient questions re: shoes, inserts, and self foot inspections were answered to their satisfaction as the patient verbally confirmed a full understanding of the above information.? ??Screening/Special Tests:?Fall Risk?Screening:?No falls in the past year ?FALLS: Screening for Future Fall Risk?Have you had any falls with injury in the past year??No * Follow Up:?1 Year * Images: * Sign off status: Completed true * Provider:?Levar Suarez DPM Date:?2023 Generated for Cece gibson/Lilli/Renay on:?02/14/2025 09:20 AM EDT History and Physical Notes * HPI (History of Present Illness) Category Sub-Category Detail Notes Category Not es Toe pain Treatments: Rx shoes At Risk footcare Pt States Last PCP Visit: Date: 4 Foot Pain Nature: tightness, cramp ing, pulling, aching Location: Foot, Leg , B/L Duration: several weeks Onset: sudden Course: worse Aggravated: especially toward th e end of the day/at rest/at night Examination Category Sub-Category Detail Notes Category Not es Neurological SENSORY: Neurological exa m demonstrates, reduced light touch sensation, reduced sharp/dull pin prick discrimination , B/L, 5.07 monofilament test performed at plantar aspects of 5 varied sites per foot shows sensation, reduced , B/L Dermatologic SKIN FINDINGS: Skin exam reveal s Keratotic lesion(s) located at, Medial, IPJ, TA, Medial, IPJ, T5, SUB MTH (s), 1, B/L, SUB MTH (s), 5, B/L, Plantar Heel(s), B/L Orthopedic FOOT MORPHOLOGY: Pain in Crane s and intrinsic foot musculature, Decreased Ankle joint dorsiflexion ROM, knee extended, B/L BUNION: Dorso-Medially promi nent 1st MPJ, RIGHT, (+) Pain on palpation, inflammation absent, ROM is guarded due to discomfort, Limited 1st MPJ Dorsal ROM FOOTWEAR EVALUATION: good condition, exh ibit proper fit and accommodation for pedal deformities. OT were inspected and noted to be worn, but in good condition giving proper support at the present time DIGITAL DEFORMITIES: Digital contracture , PIPJ, 2-5 B/L, incompl-reducible with WB, or to push-up test, no over, nor underlapping MUSCLE STRENGTH: 5/5 all groups in a symmetrical fashion, B/L General Examination GENERAL APPEARANCE: Reveals a pleasant, alert, well nourished, well-developed, well hydrated individual, who demonstrates proper attention to hygiene/body habitus, and is in no acute distress, Pt serves as own historian for office visit today FOOT EXAM: Lower Extremity Neurological Exa m performed:: Yes Visual exam of foot performed:: Yes Date: 09/06/2024 ORIENTED: person, place, and t latoya Footwear Evaluation Footwear Evaluation performe d:: Yes Ophthalmology Referral DIABETES EYE EXAM Procedure Perform ed:: Yes ?Date of Exam Performed: 03/11/2024 Diabetic Retinopathy Screening:: Yes Retinal Screening Performed:: Yes Findings of Diabetic Eye Exam:: no retin opathy Vascular DP PULSES (B): 2/4, B/L PT PULSES (B): 2/4, B/L CAPILLARY FILL TIME: 3 secs. per digit, B/L TEMPERTURE GRADIENT (C): normal, warm to cool, proximal to distal, B/L, B/L TROPHIC CONDITION-TEXTURE/ELASTICITY/TURGOR/HAIR GROWTH (B): normal, B/L EDEMA (C): absent, B/L PIGMENTATION: normal, B/L Nails NAILS are: Elongated, overg rown, dystrophic, lytic, greater than 3mm thick, discolored and friable with crumbly malodorous subungual debris, 1-5 B/L
--- OUTSIDE RECORDS SUMMARY | 2025-02-14 09:20 | XMS_ITS | Clinical Summary ---
Author Organization [facility] Address [address] [place] [address] Phone Care Team Providers Care Neurosurgery Spine Physician Name Role Phone Sander Heredia MD Primary Care Provider [phone] Allergies No known active allergies Medications glipiZIDE [...] type 1 diabetes mellitus 09/10/2021 09/17/2022 Immunizations Immunization Administration Dates Next Due Pneumococcal Polysaccharide 04/12/2014 [...] Due Date Last Done Comments Pneumococcal Vaccine: 50+ Ye ars (2 of 2 - PCV) 04/12/2015 04/12/2014 Diabetes: Hemoglobin A1C 11/11/2020 Diabetes: Ophthalmology Exam 11/11/2020 Diabetes: Pedal Pulse Checked 11/11/2020 Diabetes: Sensory Foot Exam 11/11/2020 Diabetes: Visual Foot Exam 11/11/2020 Influenza Vaccine (Season Ended) 2025 Pneumococcal Vaccine: Peds ( 0 to 5 Years) and At-Risk Patients (6 to 49 Years) Discontinued 04/12/2014 Hepatitis B Vaccine Aged Out No longe r eligible based on patient's age to complete this topic Insurance Care Teams Neurosurgery Spine Physician Relationship Specialty Start Date End Date Sander Heredia MD [id number] [place], [place] PCP - General 10/21/20
--- OUTSIDE RECORDS SUMMARY | 2025-02-14 09:20 | XMS_ITS | Patient Health Record ---
Author Organization [facility] [place] Address [address] [facility] [facility] [place] [address] Care Team Providers Care Bender Hand Name Role Phone Sander Heredia MD Primary Care Provider Levar Oglesby Unavailable [phone] Allergies No Known Allergies Results Component Value Reference Range Notes HEMOGLOBIN A1C (GLYCOHEMOGLO BIN) Reviewed date:09/06/2024 09:18:31 AM Interpretation: Performing Lab: Notes/Report: TOTAL HEMOGLOBIN (HGBA1C) 7.5 Reason For Referral No Information Medications Medication SIG (Take, Route, Fr equency, Duration) Notes Start Date End Date Status FreeStyle Test - USE TO TEST BLOOD BENJAMIN GAR BID In Vitro for 90 Active metFORMIN HCl Not-Ta [facility] Active glipiZIDE XL 5 MG 1 tablet [...] Problem Acquired hammer toe of right foot (2142159961595655 ) Other hammer toe(s) (acquired), right foot (M20.41) Active confirmed Response to treatment, Anabelle mcgarry Problem Acquired hammer toe of left foot (2413171361930965 ) Other hammer toe(s) (acquired), left foot (M20.42) Active confirmed Response to treatment, [facility] Problem Polyneuropathy due to type 2 diabetes mellitus (987932139) Type 2 diabetes mellitus with diabetic polyneuropathy (E11.42) Active confirmed Problem 3792705461 Hallux valgus of right foot (M20.11) Active confirmed Vital Signs Blood pressure diastolic 77 mm Hg 09/06/2024 Height 5 ft 6 in in 09/06/2024 Blood pressure systolic 130 mm Hg 09/06/2024 Weight 188 lbs 09/06/2024 BMI 30.34 kg/m2 09/06/2024 Procedures Procedure Date Ordered Date Performed Result Body Sit e 83958-ZFKBVZK NAIL, 6 OR MORE 09/06/2024 N/A 06142-CBLR SKIN LESIONS, OVER 4 09/06/2024 N/A Encounters Encounter Location Date Provider Diagnosis [facility] [address] [address] 09/06/2024 Levar Suarez Type 2 diabetes mellitus [...] Treatment Pending Test Test Name Order Date 37887-LDOIFPW NAIL, 6 OR MORE 09/06/2024 19656-IGSNEAK NAIL, 1-5 08/17/2017 93122-MCAW SKIN LESIONS, OVER 4 04/04/20 21 03366-PNDK SKIN LESIONS, OVER 4 03/20/20 22 26037-JTAR SKIN LESIONS, OVER 4 09/06/20 24 00339-RSBF SKIN LESIONS, OVER 4 08/17/20 17 62955-MNRG NAIL(S) 08/17/2017 Next Appt Details Provider Name:Levar Suarez , 09/03/2025 08:30:00 AM, [address] [facility], [address], [place], [address], Insurance Providers Payer Name Payer Address Payer Phone Subscriber Number Group Number Insured Name Patient Relationship to Insured Coverage Start Date Coverage End Date [employer] [place] Medicare [employer]vantage [facility] [address] [place] [address] [id number] Jame Hurt Self - patient is the insured Medical (General) History Medical History History ICD Code Diabetic Hypertension Surgical History Surgery Date(Month/Year) Back Surgery Hospitalization History Reason Date(Month/Year) [facility]20[facility]
--- OUTSIDE RECORDS SUMMARY | 2025-02-14 09:20 | XMS_ITS | Continuity of Care Document ---
Author Organization [facility] [address] [facility] [address] [place] [address] Phone [phone] Social History Type Date Description Comments Sex Unknown Medical Devices Description No Information Available Encounters Description No Information Available Assessments Description No Information Available Plan of Treatment No Information Available Functional Status Description No Information Available Mental Status Description No Information Available Referrals Description No Information Available
== END 2025-02-14 09:19 | disposition home or self-care (01) ==
LOC: HO.HMCHD 08:54
PROVIDERS: PCP Internal Medicine; Visit Provider Internal Medicine
DX: E11.22 Type 2 diabetes mellitus with diabetic chronic kidney disease (principal); N18.30 Chronic kidney disease, stage 3 unspecified; Z00.00 Encounter for general adult medical examination without abnormal findings

== ENCOUNTER → 2025-02-14 08:53 | Outpatient (BNVA) | payer MEDICARE, SELFPAY | PROVIDERS: PCP Internal Medicine; Visit Provider Internal Medicine | DX: Z13.89 Encounter for screening for other disorder (principal) | CPT/HCPCS: 99202 ==

== ENCOUNTER 2025-02-14 09:37 | Outpatient (REF) | payer MEDICARE, SELFPAY ==
--- OUTSIDE RECORDS SUMMARY | 2025-02-14 10:30 | XMS_ITS ---
Continuity of Care Document (CCD) Created on: February 14, 2025 Jame Hurt External Reference #: [id number] Sex: Male Author Organization [facility] [address] [facility] [address] [place] [address] Phone [phone] Social History Type Date Description Comments Sex Unknown Medical Devices Description No Information Available Encounters Description No Information Available Assessments Description No Information Available Plan of Treatment No Information Available Functional Status Description No Information Available Mental Status Description No Information Available Referrals Description No Information Available
--- OUTSIDE RECORDS SUMMARY | 2025-02-14 10:30 | XMS_ITS | Clinical Summary ---
Author Organization [facility] Address [address] [place] [address] Phone Care Team Providers Care Media Analyst Name Role Phone Sander Heredia MD Primary Care Provider [phone] Allergies No known active allergies Medications glipiZIDE [...] to complete this topic Insurance Care Teams Media Analyst Relationship Specialty Start Date End Date Sander Heredia MD [address] [facility] [address] [place], [place] PCP - General 10/21/20
[2025-02-14 13:40] LABS: Anion Gap 14 (12-20); Blood Urea Nitrogen 38 mg/dL (9-16); Calcium 8.7 mg/dL (8.4-10.2); Carbon Dioxide 21 mmol/L (22-29); Chloride 107 mmol/L (96-108); Estimated Glomerular Filt Rate 37; Glucose Random 429 mg/dL (60-115); Phosphorus 3.2 mg/dL (2.7-4.5); Potassium 4.8 mmol/L (3.3-5.1); Sodium 137 mmol/L (135-145)
[2025-02-14 14:22] LABS: Parathyroid Hormone Intact 123.2 pg/mL (8.7-77.1)
== END 2025-02-14 09:38 | disposition home or self-care (01) ==
LOC: HO.10HDL 09:37
PROVIDERS: Visit Provider Internal Medicine Hypertension Specialist
DX: N18.30 Chronic kidney disease, stage 3 unspecified (principal)
CPT/HCPCS: 36415; 80048; 83970; 84100; 99202

== ENCOUNTER 2025-02-19 11:08 | Outpatient (AMB) | payer MEDICARE, SELFPAY ==
[2025-02-19 11:14] VITALS: BP 140/62; PULSE 79; O2SAT 97; BMI 29.9
--- NOTE | 2025-02-19 11:14 | HO.NEPHOV ---
Vital Signs 02/19/25 11:14 Height 5 ft 6 in Weight 185 lb BMI 29.9 BP 140/62 H Blood Pressure Location Rt brachial Position Sitting Pulse 79 Pulse Source Pulse Oximeter Pulse Oximetry (%) 97 Oxygen Delivery Method Room Air Intake Visit Reasons: CKD/ LVM Stemming Machine Operator Required: No Allergies No Known Allergies Allergy (Verified 02/19/25 11:16) Medication List - Last Reconciled 02/19/25 by Lj Bowen MD dulaglutide (Trulicity) 0.75 mg subcut QWEEK glipizide ER 10 mg PO BID insulin glargine (Lantus Solostar U-100 Insulin) 15 units subcut QAM lisinopril 10 mg PO DAILY HPI Comments Details: Elderly man with history of longstanding hypertension diabetes mellitus with CKD. h/o pain in his feet most likely from neuropathy. He was unable to tolerate Lyrica in the past. He was given 100 mg which he did not tolerate. Continues to have some numbness in his feet No urine symptoms. No nausea vomiting. 06/26/2024. Overall doing well. Recently seen by Cardiology. He was discharged after echocardiogram. Trulicity has been discontinued and currently on Jardiance for the last few weeks. He is not too happy with this. Blood sugar has been suboptimal. At home blood pressures have been acceptable. 08/07/24 ;Creatinine has bumped up to 1.98 ;Jardiance was stopped 1 week ago ;Back on Trulicity 10/31/24 ;On trulicity ;BS is better controlled. Off MEtformin ;Cr stays at 1.9 02/19/25 : No urinary issues Blood sugar acceptable at home. [facility] Medical History (Updated 02/14/25 @ 09:21 by Lv Beard MD) CKD (chronic kidney disease) stage 3, GFR 30-59 ml/min Diabetes mellitus with chronic kidney disease Surgical History History of colonoscopy (~06/23/18) Family History Mother No problems noted. Father No problems noted. Social History Housing: House Alcohol intake: former Patient Tobacco Use Status: Never used Tobacco e-Cigarette/Vaping Use: Never Used service: No Current occupational status: retired Cognitive needs: No Hearing needs: No Vision needs: Yes (reading glasses) Physical Exam Vital Signs: Last Vital Signs Pulse 79 02/19/25 11:14 BP 140/62 H 02/19/25 11:14 Pulse Ox 97 02/19/25 11:14 Oxygen Delivery Method Room Air 02/19/25 11:14 BMI result Body Mass Index 29.9 Comfortable Neck supple no JVD. Lungs entry equal no rales. Heart S1-S2 heard no gallop or rub. Abdomen soft nontender. Neuro alert awake oriented. No asterixis. Extremities no edema. Results Reviewed Nephrology Results: Sodium 137 mmol/L (135-145) 02/14/25 Potassium 4.8 mmol/L (3.3-5.1) 02/14/25 Chloride 107 mmol/L (96-108) 02/14/25 Carbon Dioxide 21 mmol/L (22-29) L 02/14/25 BUN 38 mg/dL (9-16) H 02/14/25 Creatinine 1.75 mg/dL (0.5-1.4) H 02/14/25 Calcium 8.7 mg/dL (8.4-10.2) 02/14/25 Phosphorus 3.2 mg/dL (2.7-4.5) 02/14/25 PTH Intact 123.2 pg/mL (8.7-77.1) H 02/14/25 Urine Creatinine 98.60 mg/dL 08/01/24 Renal US 07/06/24 Assessment & Plan Assessment & Plan (1) CKD (chronic kidney disease) stage 3, GFR 30-59 ml/min: Code(s): N18.30 - Chronic kidney disease, stage 3 unspecified Category: Medical (2) Diabetes mellitus with chronic kidney disease: Code(s): E11.22 - Type 2 diabetes mellitus with diabetic chronic kidney disease Category: Medical Plan Elderly man CKD 3 in the setting of longstanding diabetes mellitus. Recent bump in creatinine increased from 1.6 up to 1.8. and up to 1.98 The timing corresponds to antonieta initiation of JArdiance ? ALEXA due to Jardiance vs component of hypoperfusion. Now cr is stable at baseline of 1.75 ultrasonogram - No obstruction. Creatinine unchanged over 4 months Recent Urine Pro: cr was 0.79 Goal is to slow the progression of renal disease. Continue to avoid nephrotoxic agents including NSAIDs. Blood pressure is well controlled Encouraged him to check his blood pressure at home and to call me with readings. Might have to readjust his medications based on home readings Maintain blood pressure less than 130 mm of mercury. . h/o hyperkalemia ; Resolved ( per pt- repeat was normal) ;Encouraged low K diet Elevated iPTH Mild SHPT PTH 123 and unchanged Coding Level of Care Code Est Pt Level 4 (44640) Diagnoses CKD (chronic kidney disease) stage 3, GFR 30-59 ml/min N18.30 Diabetes mellitus with chronic kidney disease E11.22
--- OUTSIDE RECORDS SUMMARY | 2025-02-19 11:56 | XMS_ITS | Clinical Summary ---
Author Organization [facility] Address [address] [place] [address] Phone Care Team Providers Care Field Service Supervisor Name Role Phone Sander Heredia MD Primary Care Provider [phone] Allergies No known active allergies Medications glipiZIDE [...] to complete this topic Insurance Care Teams Field Service Supervisor Relationship Specialty Start Date End Date Sander Heredia MD [address] [facility] [address] [place], [place] PCP - General 10/21/20
--- OUTSIDE RECORDS SUMMARY | 2025-02-19 11:56 | XMS_ITS ---
[facility] Address [address] [place] [address] Care Team Providers Care Box Machine Operator Name Role Phone Yan SAINI, Sander Primary Care Provider Levar Oglesby Unavailable [phone] Allergies No Known Allergies REASON FOR VISIT [...] Polyneuropathy due to type 2 diabetes mellitus (742780890) Type 2 diabetes mellitus with diabetic polyneuropathy (E11.42) Active confirmed Problem Acquired hammer toe of right foot (8172131812594000 ) Other hammer toe(s) (acquired), right foot (M20.41) Active confirmed Response to treatment, Improvemen t Problem Acquired hammer toe of left foot (0383167446512250 ) Other hammer toe(s) (acquired), left foot (M20.42) Active confirmed Response to treatment, Improvemen t Problem 8799468507 Hallux valgus of right foot (M20.11) Active confirmed Vital Signs Height 5 ft 6 in in 09/06/2024 Weight 188 lbs 09/06/2024 BMI 30.34 kg/m2 09/06/2024 Blood pressure systolic 130 mm Hg 09/06/20 24 Blood pressure diastolic 77 mm Hg 024 Procedures Procedure Date Ordered Date Performed Result Body Sit e 62147-CPMFGJF NAIL, 6 OR MORE 09/06/2024 N/A 72134-IQRM SKIN LESIONS, OVER 4 09/06/2024 N/A Encounters Encounter Location Date Provider Diagnosis [facility] [address] [address] 09/06/2024 Levar Suarez Type 2 diabetes mellitus [...] Treatment Pending Test Test Name Order Date 49162-WDUFAQD NAIL, 6 OR MORE 09/06/2024 67811-HLHQ SKIN LESIONS, OVER 4 09/06/20 24 Next Appt Details Follow Up: 1 Year, Reason: Provider Name:Levar Suarez , 09/03/2025 08:30:00 AM, [address] [facility], [address], [place], [address], Procedure Notes * Category Sub-Category Detail Notes [...] use of a nail nipper and/or dremel-type grinder needle tip, to a more viable healthy nail plate [...] to maintain effectiveness in symptomatic relief - 34756 Keratoma Treatment Parring or Cutting o f Benign Hyperkeratotic Lesion(s) (-57) More than 4 Lesions - The Benign hyperkeratotic lesions, ( 8) in total, locations as stated and described in exam, were pared, and/or cut utilizing a sterile 15 blade, tissue nippers, and/or power dremel instrumentation - 77216 Progress Notes * Jame PITTSDOB: [birth year] (84 yo M)Acc No.[id number]:09/06/2024 Progress Note Patient:?Jame PITTS Provider:?Levar Suarez DPM :1940???Age:83 Y???Sex:Male Dwain e:09/06/2024 Address:[address] [place], [place] [address] Pcp:Sander Heredia MD Subjective: * Chief Complaints: [...] and reconciled with the patient * Allergies:?N.K.D.A.yes[Zafar portilol Verified] Objective: * Vitals:?Ht: 5 ft 6 [...] use of a nail nipper and/or dremel-type grinder needle tip, to a more viable healthy nail plate [...] to maintain effectiveness in symptomatic relief - 21313.?Keratoma Treatment:?Parring or Cutting of Benign Hyperkeratotic Lesion(s)?(-57) More than 4 Lesions - The Benign hyperkeratotic lesions, ( 8) in total, locations as stated and described in exam, were pared, and/or cut utilizing a sterile 15 blade, tissue nippers, and/or power dremel instrumentation - 33953.? * Procedure Codes:?78012 DEBRI DE NAIL, 6 OR MORE, Modifiers: XS 29508 TRIM SKIN LESIONS, OVER 4, Modifiers: XS [...] exercise to failure, expense, systemic complications, infection, [id number], prolongued postop course. Patient questions re: the various treatment options available, their successes and potential failures, and emt intermediate effects were discussed and the answers were [...] Suarez DPM Date:?2023 Generated for Cece gibson/Lilli/Renay on:?02/19/2025 11:55 AM EDT History and Physical Notes * [...] Heel(s), B/L Orthopedic FOOT MORPHOLOGY: Pain in [place] and intrinsic foot musculature, Decreased Ankle [...]
--- OUTSIDE RECORDS SUMMARY | 2025-02-19 11:56 | XMS_ITS | Patient Health Record ---
Author [facility] [place] Address [address] [facility] [place] [address] Care Team Providers Care Draw Frame Operator Name Role Phone Sander Heredia MD Primary Care Provider Levar Oglesby Unavailable [phone] Allergies No Known Allergies Results Component Value Reference Range Notes HEMOGLOBIN A1C (GLYCOHEMOGLO BIN) Reviewed date:09/06/2024 09:18:31 AM Interpretation: Performing Lab: Notes/Report: TOTAL HEMOGLOBIN (HGBA1C) 7.5 Reason For Referral No Information Medications Medication SIG (Take, Route, Fr equency, Duration) Notes Start Date End Date Status FreeStyle Test - USE TO TEST BLOOD BENJAMIN GAR BID In Vitro for 90 Active metFORMIN HCl Not-Ta [facility] Active glipiZIDE XL 5 MG 1 tablet [...] Problem Acquired hammer toe of right foot (8216895566369796 ) Other hammer toe(s) (acquired), right foot (M20.41) Active confirmed Response to treatment, Anabelle mcgarry Problem Acquired hammer toe of left foot (1433146040629001 ) Other hammer toe(s) (acquired), left foot (M20.42) Active confirmed Response to treatment, [facility] Problem Polyneuropathy due to type 2 diabetes mellitus (086669600) Type 2 diabetes mellitus with diabetic polyneuropathy (E11.42) Active confirmed Problem 2690080022 Hallux valgus of right foot (M20.11) Active confirmed Vital Signs Blood pressure diastolic 77 mm Hg 09/06/2024 Height 5 ft 6 in in 09/06/2024 Blood pressure systolic 130 mm Hg 09/06/2024 Weight 188 lbs 09/06/2024 BMI 30.34 kg/m2 09/06/2024 Procedures Procedure Date Ordered Date Performed Result Body Sit e 80971-WTFGUXV NAIL, 6 OR MORE 09/06/2024 N/A 06779-BFRN SKIN LESIONS, OVER 4 09/06/2024 N/A Encounters Encounter Location Date Provider Diagnosis [facility] [address] [address] 09/06/2024 Levar Suarez Type 2 diabetes mellitus [...] Treatment Pending Test Test Name Order Date 35561-GJBQWCH NAIL, 6 OR MORE 09/06/2024 00217-ROJUXMM NAIL, 1-5 08/17/2017 93787-RDTH SKIN LESIONS, OVER 4 04/04/20 21 21180-BDND SKIN LESIONS, OVER 4 03/20/20 22 02294-KPZS SKIN LESIONS, OVER 4 09/06/20 24 16946-DWCL SKIN LESIONS, OVER 4 08/17/20 17 40636-XXGR NAIL(S) 08/17/2017 Next Appt Details Provider Name:Levar Suarez , 09/03/2025 08:30:00 AM, [address] [facility], [address], [place], [address], Insurance Providers Payer Name Payer Address Payer Phone Subscriber Number Group Number Insured Name Patient Relationship to Insured Coverage Start Date Coverage End Date [employer] [place] Medicare [employer]age [facility] [address] [place] [address] [id number] Jame Hurt Self - patient is the insured Medical (General) History Medical History History ICD Code Diabetic Hypertension Surgical History Surgery Date(Month/Year) Back Surgery Hospitalization History Reason Date(Month/Year) [facility]
== END 2025-02-19 11:37 | disposition home or self-care (01) ==
LOC: HO.HKA 11:08
PROVIDERS: PCP Internal Medicine; Visit Provider Internal Medicine Hypertension Specialist
DX: E11.22 Type 2 diabetes mellitus with diabetic chronic kidney disease (principal); N18.30 Chronic kidney disease, stage 3 unspecified
CPT/HCPCS: 99214

== ENCOUNTER → 2025-02-19 11:08 | Outpatient (BNVA) | payer MEDICARE, SELFPAY | PROVIDERS: PCP Internal Medicine; Visit Provider Internal Medicine Hypertension Specialist | DX: E11.22 Type 2 diabetes mellitus with diabetic chronic kidney disease (principal); N18.9 Chronic kidney disease, unspecified | CPT/HCPCS: 99212 ==

== ENCOUNTER 2025-08-15 09:21 | Outpatient (AMB) | payer MEDICARE, SELFPAY ==
--- OUTSIDE RECORDS SUMMARY | 2025-08-13 08:40 | XMS_ITS | Encounter Summary ---
Author Organization [facility] Address [address] [facility] [address] [place] [address] Phone Care Team Providers Care Saddle Mechanic Name Role Phone Sander Heredia MD Primary Care Provider Reason for Visit * Reason Comments Diabetes Mellitus Encounter Details Date Type Department Care Team (Late st Contact Info) Description 08/13/2025 8:40 AM EST Office Visit [facility] [address] [place] [id number] Kavitha Herrera MD [address] [place] [id number] [email or web address] Type 2 diabetes mellitus with stage 3b chronic kidney disease, with long-term current use of insulin (Primary Dx); Paresthesia Social History Tobacco Use Types Packs/Day Years Used Date Smoking Tobacco: Never Smokeless Tobacco: Never Alcohol Use Standard Drinks/Week Comments Not Currently 0 (1 standard drink = 0.6 oz pur e alcohol) Education Answer Date Recorded Are you interested in more education? Not on chela e 02/06/2023 Are you concerned about learning? Not on file 02/06/2023 No 02/06/2023 No 02/06/2023 Digital Access Answer Date Recorded No 03/09/2023 No 03/09/2023 Reliable internet access at home? Not on file 03/09/2023 Device with a working camera? Not on file Sex and Gender Information Value Date Recorded Sex Assigned at Not on file Legal Sex Male 3:42 PM EST Gender Identity Not on file Sexual Orientation Not on file documented as of this encounter Last Filed Vital Signs Vital Sign Reading Time Taken Comments Blood Pressure 126/62 08/13/2025 8:37 AM EST Pulse 68 08/13/2025 8:37 AM EST Temperature - - Respiratory Rate - - Oxygen Saturation 98% 08/13/2025 8:37 AM EST Inhaled Oxygen Concentration - - Weight 85.1 kg (187 lb 9.6 oz) 08/13/2025 8:37 A M EST Height 166.5 cm (5' 5.55 ) 08/13/2025 8:37 AM ES T Body Mass Index 30.7 08/13/2025 8:37 AM EST documented in this encounter Miscellaneous Notes * Assessment & Plan Note - Kavitha Herrera MD - 08/13/2025 9:34 AM EST Associated Problem(s): Type 2 diabetes mellitus with stage 3b chronic kidney disease, with long-term current use of insulin Control is reasonable by reported SMBG. Last A1c 7.9% in 11/2024. 1 episode of mild hypoglycemia when skips breakfast and had increased physical activity a few weeks ago. He remains on 14 to 15 units of Lantus at bedtime, 0.75 mg weekly with glipizide 10 mg twice a day. Has appointment with Dr. Nunes in 2 days. -Will have blood work today, added renal labs to share with Dr. REYNAGA at next appointment -If A1c over 7.5%, would increase Trulicity dose to 1.5 mg weekly. Patient is hesitant about the change, will rediscuss -Reviewed symptoms, prevention and treatment of hypoglycemia. Patient to decrease Lantus dose by 2 units if blood sugars below 70 repeatedly documented in this encounter Plan of Treatment Upcoming Encounters Date Type Department Care Team (Late st Contact Info) Description 12/19/2025 10:00 AM EDT Office Visit [facility] [address] [place] [address] Kavitha Herrera MD [address] [place] [id number] [email or web address] Scheduled Orders Name Type Priority Associated Diagnoses Orde r Schedule Hemoglobin A1c Lab Routine Type 2 diabetes mellitus with stage 3b chronic kidney disease, with long-term current use of insulin Expected: 08/13/2025, Expires: 08/13/2026 Comprehensive Metabolic Panel (CMP) Lab Routine Type 2 diabetes mellitus with stage 3b chronic kidney disease, with long-term current use of insulin Expected: 08/13/2025, Expires: 08/13/2026 Microalbumin/Creatinine Ratio, Random Urine Lab Routine Type 2 diabetes mellitus with stage 3b chronic kidney disease, with long-term current use of insulin Expected: 08/13/2025, Expires: 08/13/2026 Thyroid Stimulating Hormone (TSH), with Reflex Lab Routine Type 2 diabetes mellitus with stage 3b chronic kidney disease, with long-term current use of insulin Expected: 08/13/2025, Expires: 08/13/2026 Parathyroid Hormone (PTH) Lab Routine Paresthesia Expected: 08/15/2025 (Approximate), Expires: 08/13/2026 Phosphorus Lab Routine Type 2 diabetes mellitus with stage 3b chronic kidney disease, with long-term current use of insulin Expected: 08/20/2025 (Approximate), Expires: 08/13/2026 Vitamin B12 Lab Routine Type 2 diabetes mellitus with stage 3b chronic kidney disease, with long-term current use of insulin Expected: 08/13/2025, Expires: 08/13/2026 CBC Lab Routine Type 2 diabetes mellitus with stage 3b chronic kidney disease, with long-term current use of insulin Expected: 08/13/2025, Expires: 08/13/2026 Magnesium Lab Routine Type 2 diabetes mellitus with stage 3b chronic kidney disease, with long-term current use of insulin Expected: 08/13/2025, Expires: 08/13/2026 documented as of this encounter Visit Diagnoses Diagnosis Type 2 diabetes mellitus with stage 3b chronic kidney disease, with long-term current use of insulin- Primary Paresthesia Disturbance of skin sensation documented in this encounter Care Teams Saddle Mechanic Relationship Specialty Start Date End Date Sander Heredia MD [address] [place] [address] Dr Dutta, REBECCA [address] PCP - General Internal Medicine 11/11/22 documented as of this encounter Additional Source Comments The information contained in this document represents components of the legal health record. It is not the complete legal health record.[facility]
--- NOTE | 2025-08-15 08:55 | A.OFFPC_ITS ---
Vital Signs 08/15/25 09:28 08/15/25 10:15 Height 5 ft 6 in Weight 187 lb BMI 30.2 BP 142/80 H 138/78 Blood Pressure Location Lt brachial Position Sitting Pulse 66 Pulse Source Pulse Oximeter Temp 97.9 F Temp Source Temporal Artery Scan Pulse Oximetry (%) 98 Oxygen Delivery Method Room Air Intake Visit Reasons: PE- see comments Malter Operator Required: No Accompanied by: Self / Same As Patient Allergies No Known Allergies Allergy (Verified 08/15/25 09:29) Medication List - Last Reconciled 08/15/25 by MOOK Cannon dulaglutide (Trulicity) 0.75 mg subcut QWEEK glipizide ER 10 mg PO BID insulin glargine (Lantus Solostar U-100 Insulin) 15 units subcut QAM lisinopril 10 mg PO DAILY 90 days Tobacco use date assessed: 08/15/25 Fall risk assessment: No Falls in past year Last assessed Fall Risk: 08/15/25 Dental Screening Dental Screen Date: 08/15/25 Did you have a dental visit in the last 12 months?: Yes Did you have a dental problem in the last 6 months where you did not have access to dental care?: No HPI HPI Comments History of Present Illness Details The patient is an 84-year-old male with DM, CKD, HTN, polyneuropathy and obesity presenting to establish care and for management of chronic conditions. He was previously a patient of Dr. Heredia, who retired. The patient has a history of type 2 diabetes mellitus and is managed by an pmp project manager, Dr. Herrera in [place]. He reports a past lab result showing a blood sugar of 450 mg/dL, which he disputes, stating his usual readings are lower, such as 160 mg/dL previously. His home blood glucose readings are typically in the range of 69 to 110 mg/dL. His current diabetes medication regimen includes glipizide twice daily, Trulicity once a week, and Lantus 15 units. He was previously on Jardiance but was taken off of it due to side effects. He was seen by Dr. López last week. The patient also has hypertension and chronic kidney disease, for which he takes lisinopril 10mg. His BP today was 142/78 and 138/78. He is followed by a n ephrologist, Dr. Bowen, whom he has an appointment with next week. He previously experienced nocturnal leg cramps, which have resolved since he started taking magnesium twice a day. Neurologically, the patient reports intermittent tingling and numbness in his feet. He has a neruopathy, which was identified on a past EMG study in 2022. Regarding his vision, he underwent a laser eye operation a couple of years ago and follows with an eye doctor every year. His last eye exam was in February, the patient's of 59 years three years ago. Medical History: - Type 2 diabetes mellitus - Hypertension - Chronic kidney disease - Arthritis - Paresthesia - Nocturnal leg cramps, resolved Patient was informed and verbally consented to the use of an ambient scribe for clinic note documentation during this visit. [facility] Medical History (Updated 08/15/25 @ 10:44 by MOOK Cannon) CKD (chronic kidney disease) stage 3, GFR 30-59 ml/min Diabetes mellitus with chronic kidney disease Hypertension Obesity (BMI 30.0-34.9) Peripheral neuropathy Surgical History History of colonoscopy (~06/23/18) Family History (Updated 08/15/25 @ 09:36 by Shital Barnhart MA) Mother No problems noted. Father No problems noted. Social History Housing: House Alcohol intake: former Patient Tobacco Use Status: Never used Tobacco e-Cigarette/Vaping Use: Never Used service: No Current occupational status: retired Cognitive needs: No Hearing needs: No Vision needs: Yes (reading glasses) Questionnaire PHQ-9 Over the last 2 weeks, how often have you been bothered by any of the following problems? 1. Little interest or pleasure in doing things: not at all 2. Feeling down, depressed, or hopeless: not at all 3. Trouble falling or staying asleep, or sleeping too much: not at all 4. Feeling tired or having little energy: not at all 5. Poor appetite or overeating: not at all 6. Feeling bad about yourself - or that you are a failure or have let yourself or your family down: not at all 7. Trouble concentrating on things, such as reading the newspaper or watching television: not at all 8. Moving or speaking so slowly that other people could have noticed. Or the opposite - being so fidgety or restless that you have been moving around a lot more than usual: not at all 9. Thoughts that you would be better off or of hurting yourself in some way: not at all Total score: 0 Depression Screening Interpretation: Negative Depression Screening Done: Yes Source: Developed by Drs. Tommy Chester, Shirin Barrios, Bjorn Medel and colleagues, with an educational carlos from [employer]. Thrive Questionnaire Date Thrive assessed: 08/15/25 I am a: Patient Within the past 12 months, did the food you bought not last and you didn't have the money to get more?: Never true Within the past 12 months, did you worry whether your food would run out before you got money to buy more?: Never true Do you have trouble paying for medicines?: No Do you have trouble getting transportation to medical appointments?: No Do you have trouble paying your heating and electricity bill?: No Do you have trouble taking care of your child, family member or friend?: No Do you have trouble with day-to-day activities such as bathing, preparing meals, shopping, managing finances, etc.?: No Are you currently unemployed and looking for a job?: No Are you interested in more education?: No THRIVE Score: 0 AUDIT C Alcohol Use Questionnaire (AUDIT-C) 1. How often do you have a drink containing alcohol?: Never 3. How often do you have six or more drinks on one occasion?: Never Total Score: 0 ALEXANDRA-7 AMB Questionnaire ALEXANDRA-7 Date ALEXANDRA - 7 assessed: 08/15/25 Feeling nervous, anxious, or on edge: 0 = Not at all Not being able to stop or control worryin = Not at all Worrying too much about different things: 0 = Not at all Trouble relaxin = Not at all Being so restless that it is hard to sit still: 0 = Not at all Becoming easily annoyed or irritable: 0 = Not at all Feeling afraid as if something awful might happen: 0 = Not at all Total ALEXANDRA-7 score (0-4 normal; 5-9 mild; 10-14 moderate; 15-21 severe): 0 Source: Developed by Drs. Tommy Chester, Shirin Barrios, Bjorn Medel and colleagues, with an educational carlos from [employer]. Review of Systems Narrative - General: Denies pain. - Eyes: Reports good vision. - Ears: Denies hearing problems. - Cardiovascular: Denies chest pain. - Respiratory: Denies coughing and shortness of breath. - Gastrointestinal: Denies constipation, diarrhea, and heartburn. - Musculoskeletal: Denies back pain and joint pain. - Neurological: Reports intermittent tingling and numbness in his head. Physical exam (Primary Care) Vital Signs: Last Vital Signs Temp 97.9 F 08/15/25 09:28 Pulse 66 08/15/25 09:28 BP 142/80 H 08/15/25 09:28 Pulse Ox 98 08/15/25 09:28 Oxygen Delivery Method Room Air 08/15/25 09:28 BMI result Body Mass Index 30.2 GENERAL Well developed, obese, in no apparent distress HEENT Head-Normocephalic Eyes- PERRLA, EOMI, Conjuctiva clear, lids WNL Ears- Canals clear, TMs WNL Mouth/Throat-No lesions, no erythema, no exudate Neck- Supple, No lymphadenopathy, thyroid WNL RESPIRATORY Normal I:E, Clear to auscultation CARDIOVASCULAR Regular, rate and rhythm, No murmurs or rubs GASTROINTESTINAL Soft, nontender, normal bowel sounds, no masses MUSCULOSKELETAL Back- nontender Joints- no swelling or deformity NEUROLOGICAL Gait normal PSYCHIATRIC Oriented to person, place and time Mood and affect WNL Appearance WNL Speech WNL Thought processes WNL Tobacco/Smoking Status: Tobacco use Status Tobacco use date assessed 08/15/25 08/15/25 08:57 Patient Tobacco Use Status Never used Tobacco 08/15/25 08:57 e-Cigarette/Vaping Use Never Used 08/15/25 08:57 PHQ-9: PHQ-9 Score PHQ-9: Total score 0 08/15/25 09:38 Depression Screening Interpretation: Negative Thrive Assessment: Date of Thrive Assessment Date Thrive assessed 08/15/25 08/15/25 08:57 Coding Level of Care Code Established Pt Est Pt Level 4 (98769) Established Pt Complex EM visit Add On G2211 Patient Type Established Diagnoses Diabetes mellitus with chronic kidney disease E11.22 Diabetes mellitus type: type 2 Diabetes mellitus group home insulin use: with long chain beamer use Chronic kidney disease stage: stage 3 (moderate) CKD (chronic kidney disease) stage 3, GFR 30-59 ml/min N18.30 Hypertension I10 Peripheral neuropathy G62.9 Obesity (BMI 30.0-34.9) E66.9 Time Spent (min) 35 Comment Calin spent on chart review, medication reconciliation, H&P, patient education, orders Assessment & Plan Assessment & Plan (1) Diabetes mellitus with chronic kidney disease: Code(s): E11.22 - Type 2 diabetes mellitus with diabetic chronic kidney disease Category: Medical Qualifiers: Diabetes mellitus type: type 2 Diabetes mellitus group home insulin use: with long chain beamer use Chronic kidney disease stage: stage 3 (moderate) Plan: The patient's diabetes is managed by an pmp project manager. He will continue his current medications including glipizide, Trulicity, and Lantus. He is scheduled to have blood work, including an A1c, done as ordered by his pmp project manager. A card with my information was provided to the patient to give to his pmp project manager to ensure results are shared. Patient to follow up in 3 months or sooner if symptoms persist or worsen. (2) CKD (chronic kidney disease) stage 3, GFR 30-59 ml/min: Code(s): N18.30 - Chronic kidney disease, stage 3 unspecified Category: Medical Plan: The patient is followed by a anthropology professor and has an appointment next week. He continues lisinopril for renal protection. No new orders for this condition were placed, pending his specialist visit. (3) Hypertension: Comment: BP today was 142/80 and 138/78 Code(s): I10 - Essential (primary) hypertension Category: Medical Plan: The patient's blood pressure was 138/76 mmHg in the office. No changes will be made to his lisinopril 10 mg at this time. Blood pressure will be monitored, with a follow-up scheduled in three months. (4) Peripheral neuropathy: Code(s): G62.9 - Polyneuropathy, unspecified Category: Medical Plan: The patient reports intermittent tingling in his feet. It was discussed that this could be related to diabetes or arthritis. No further workup is planned at this time. Patient to follow up in 3 months or sooner if symptoms persist or worsen. (5) Obesity (BMI 30.0-34.9): Comment: BMI today was 30.2 Code(s): E66.9 - Obesity, unspecified Category: Medical Plan: Discussed the health risks of obesity with the patient. Reviewed benefits of even moderate weight loss with the patient. Patient will gradually try and increase exercise to 30-40 min 5-7 times per week. We discussed they may need to break the exercise up into 2-3 sessions daily due to neuropathy. We discussed the patient adding more fruits and vegetables to their diet. Will monitor weight and follow up in 6 months Plan I introduced myself as the patient's new primary care physician following the skilled nursing of his previous doctor. We discussed his blood pressure reading of 138/76 mmHg, and I advised that no change to his lisinopril dose is necessary at this time, but we will continue to monitor it. I acknowledged his symptoms of head tingling and explained it could be related to either his diabetes or arthritis. As his pmp project manager and anthropology professor are ordering comprehensive lab work, I informed him that I would not order additional blood tests today to avoid redundancy. I provided him with my information on a card to give to his pmp project manager to facilitate the sharing of medical records and test results. I recommended a follow-up visit in three months to review his lab results and reassess his chronic conditions. Patient Instructions: - Continue taking all your current medications as prescribed, including those for diabetes (glipizide, Trulicity, Lantus) and blood pressure (lisinopril). - Continue taking magnesium for leg cramps, as it is helping. - Please get the blood work done that your pmp project manager ordered. - Give the card with my information to your pmp project manager so she can send me your results. - If you need medication refills, please call our office or have your pharmacy contact us. - Please schedule a follow-up appointment with me in three months.
[2025-08-15 09:28] VITALS: BP 142/80; PULSE 66; TEMP 36.6; O2SAT 98; BMI 30.2
[2025-08-15 10:15] VITALS: BP 138/78
--- OUTSIDE RECORDS SUMMARY | 2025-08-15 10:15 | XMS_ITS | Patient Health Record ---
[facility] [place] Address [address] [place] [address] Care Team Providers Care Principal Security Architect Name Role Phone Sander Heredia MD Primary Care Provider Levar Oglesby Unavailable [phone] Allergies No Known Allergies Reason For Referral No Information Medications Medication SIG (Take, Route, Fr equency, Duration) Notes Start Date End Date Status FreeStyle Test - USE TO TEST BLOOD BENJAMIN GAR BID In Vitro; Duration: 90 Active metFORMIN HCl Not-Ta [facility] Active glipiZIDE XL 5 MG 1 [...] Problem Acquired hammer toe of right foot (7008264321951393 ) Other hammer toe(s) (acquired), right foot (M20.41) Active confirmed Response to treatment, Improvemen t Problem Acquired hammer toe of left foot (7570856532119350 ) Other hammer toe(s) (acquired), left foot (M20.42) Active confirmed Response to treatment, Improvemen t Problem Polyneuropathy due to type 2 diabetes mellitus (810150950) Type 2 diabetes mellitus with diabetic polyneuropathy (E11.42) Active confirmed Problem Hallux valgus of right foot (8527933588) Hallux valgus of right foot (M20.11) Active confirmed Vital Signs Blood pressure diastolic 77 mm Hg 09/06/2024 Height 5 ft 6 in in 09/06/2024 Blood pressure systolic 130 mm Hg 09/06/2024 Weight 188 lbs 09/06/2024 BMI 30.34 kg/m2 09/06/2024 Procedures Procedure Date Ordered Date Performed Result Body Sit e [id number] NAIL, 6 OR MORE 09/06/2024 N/A [id number] SKIN LESIONS, OVER 4 09/06/2024 N/A Encounters Encounter Location Date Provider Diagnosis [facility] [address] [place] [id number] 09/06/2024 Levar Suarez Type 2 diabetes mellitus [...] Treatment Pending Test Test Name Order Date [id number] NAIL, 6 OR MORE 09/06/2024 [id number] NAIL, 1-5 08/17/2017 [id number] SKIN LESIONS, OVER 4 04/04/20 21 34914-XLMR SKIN LESIONS, OVER 4 03/20/20 22 15925-ADHG SKIN LESIONS, OVER 4 09/06/20 24 [id number] SKIN LESIONS, OVER 4 08/17/20 17 [id number]-HGAO NAIL(S) 08/17/2017 Insurance Providers Payer Name Payer Address Payer Phone Subscriber Number Group Number Insured Name Patient Relationship to Insured Coverage Start Date Coverage End Date [employer] [address] [place] [address] [phone] [id number] Jame Hurt Self - patient is the insured Medical (General) History Medical History History ICD Code Diabetic Hypertension Surgical History Surgery Date(Month/Year) Back Surgery Hospitalization History Reason Date(Month/Year) [facility] 02/2021
--- OUTSIDE RECORDS SUMMARY | 2025-08-15 10:16 | XMS_ITS | Continuity of Care Document ---
Author Organization [facility] [address] [place] [address] Phone [phone] Social History Type Date Description Comments Sex Male Sex Unknown Medical Devices Description No Information Available Encounters Description No Information Available Assessments Description No Information Available Plan of Treatment No Information Available Functional Status Description No Information Available Mental Status Description No Information Available Referrals Description No Information Available
--- OUTSIDE RECORDS SUMMARY | 2025-08-15 10:16 | XMS_ITS | Clinical Summary ---
Author Organization [facility] Address [address] [address] Phone Care Team Providers Care Meteorologist Liaison Name Role Phone Sander Heredia MD Primary Care Provider Allergies No known active allergies Medications glipiZIDE (GLUCOTROL) 10 MG tablet Take 10 mg by mouth 2 (two) times a day. 2 Active insulin glargine 100 unit/mL (3 mL) InPn injection pen 15 Units daily. Active zolpidem (AMBIEN) 5 MG tablet Take 5 mg by mouth nightly at bedtime as needed. 3 Active lisinopril (PRINIVIL,ZESTRIL ) 10 MG tablet Take 10 mg by mouth daily. 4 Active FREESTYLE LITE Strp stripsIndications :Type 2 diabetes mellitus with stage 3b chronic kidney disease, with long-term current use of insulin USE TO MONITOR BLOOD GLUCOSE THREE TIMES DAILY, INSULIN TREATED 300 strip 3 4 Active dulaglutide (TRULICITY) 0.75 mg/0.5 mL subcutaneous injectionIndicati ons:Type 2 diabetes mellitus with diabetic neuropathy, with long-term current use of insulin INJECT 0.5 ML (0.75 MG TOTAL) UNDER THE SKIN EVERY 7 DAYS. 3 mL 2 5 Active Active Problems Problem Noted Date Diagnosed Date Paresthesia 08/13/2025 Hyperkalemia 09/03/2024 Type 2 diabetes mellitus wit h diabetic neuropathy, with long-term current use of insulin 09/03/2024 Assessment & Plan (12/04/2024 10:08 PM EST): Right leg paresthesia remains. Status post back surgery years ago. Side effects on Lyrica in the past. Taking 600 mg ALA with some benefit-will continue Type 2 diabetes mellitus wit h stage 3b chronic kidney disease, with long-term current use of insulin 04/25/2023 Assessment & Plan (08/13/2025 9:34 AM EST): Control is reasonable by reported SMBG. Last [...] units if blood sugars below 70 repeatedly Assessment & Plan (12/04/2024 10:10 PM EST): Control improved slightly with A1c 7.9% in 11/2024 from 8.1% in 08/2024. Fasting blood sugars have been in the 150s within the last week with increased family stress while taking 14 units of Lantus at bedtime consistently. He remains on glipizide 10 mg twice a day and Trulicity 0.75 mg weekly. Has 2- month supply of Trulicity -Discussed option to increase the Trulicity to 1.5 mg weekly to improve postprandial blood sugars. Patient wanted to use up current supplies of 0.75 mg pens and does not like the idea of taking 2 shots of the 0.75 mg dose. H will let me know in 2 months if he wants to increase the dose. -Increase the Lantus to 16 units at bedtime and continue to adjust to keep fasting glucose between 90-130 -Continued follow-up with renal. Creatinine/estimated GFR stable, potassium normalized from being slightly elevated in August Assessment & Plan (04/25/2024 9:31 AM EDT): Improved A1c to 7.5% in 03/2024 from 7.8 in December. Patient remains on 15 units of Lantus at bedtime, metformin 500 mg daily, glipizide 10 mg twice a day and Trulicity 0.75 mg once a week. Recent renal function is slightly better with estimated GFR 50 from 43. Urine microalbumin/creatinine ratio remains high around 800. Blood pressure at target, lipids close to target in 12/2023. We again discussed the pros and cons of using an SGLT2 inhibitor. Patient was initially hesitant because of cost. At the end of the visit he felt that exchanging the Trulicity to Jardiance might be a way to go. Rx sent on 10 mg Jardiance daily. He will use up his Trulicity 5-week supply then start the Jardiance and continue the other diabetes medications for now. Reviewed symptoms, prevention and treatment of hypoglycemia. Call if blood sugar below 70 or over 250 repeatedly. Follow-up in 3 to 4 months with labs prior to visit. Assessment & Plan (01/13/2024 11:15 AM EDT): Good control by recent SMBG. Last A1c higher at 7.8% in 12/2023. Fasting glucose is at target while patient is using 15 units of Lantus at bedtime. No frequent or severe hypoglycemia. We discussed the progressive nature of type 2 diabetes and the gradual decrease in insulin secretion and needing more medications to control blood sugars. We decided to continue the metformin at 500 mg daily -estimated GFR stable at 43-, continue current glipizide 10 mg twice a day. He expects to be more physically active which may help to control his blood sugars so we kept the same dose of Trulicity 0.75 mg weekly. For now he will keep the 15 units of Lantus at night and adjust it depending on fasting sugar readings. We reviewed symptoms, prevention and treatment of hypoglycemia. Call if blood sugar below 70 or over 250 repeatedly. Assessment & Plan (09/24/2023 1:47 PM EST): Improved control. Trulicity 0.75 mg weekly added in early June and continues on Lantus 14 units daily and glipizide 10 mg twice a day and metformin 500 mg daily. No frequent or severe hypoglycemia, lowest blood sugar 72 fasting without symptoms. Continued paresthesia on right leg. Had side effects on Lyrica, he switched his B12 to B complex recently. He reports nerve conduction studies on both legs recently, results unknown. Status post back surgery Plan to continue current treatment. Reviewed symptoms, prevention and treatment of hypoglycemia. If fasting or overnight hypoglycemia, patient to continue to decrease Lantus by 2 to 3 units. Correlate blood sugars below 70 or over 250 repeatedly. Assessment & Plan (04/25/2023 7:53 PM EDT): Improved but suboptimal control. Last A1c down to 8% in March from 9%. Had 2 episodes of mild fasting hypoglycemia in the 60s while using between 24 to 25 units of Lantus. He continues to have right foot numbness which is more likely related to radiculopathy, status post back surgery. He remains on B12 supplement. He is renal function slightly worsened by March with estimated GFR of 36 from 43. We all agree that Jardiance would be a good idea to add but it is too costly. Patient is trying to get assistance from the luggage liner. Encouraged to call to follow-up on his letter he sent to the company. In the interim we decided to add Trulicity 0.75 mg weekly. Patient tried this in the past and it was working well. Continue to work on carb controlled meal plan and stay active as tolerated. If fasting or overnight blood sugar gets below the 70s patient should decrease the Lantus by 2 units. Call if blood sugar below 70 or over 250 repeatedly. I Type 2 diabetes with kidney complications 2022 Assessment & Plan (12/15/2022 10:12 AM EST): Control is reasonable by SMBG. Recent A1c not available. No frequent or severe hypoglycemia. Lowest fasting glucose in the 70s without symptoms of hypoglycemia. Weight is stable. Plan was to add Jardiance and patient just received insurance improved well but medication is too costly. He will request patient assistance from luggage liner and will let me know if he will be able to add Jardiance. Would expect lower insulin needed when on this medication. Followed by upholstery department supervisor, Dr.Babu every 6 months. Reports stable renal function, recent labs not available. 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 Continued numbness in the right foot since back surgery 15 months ago, stable but quite annoying to patient. He is planning to see a specialist in [place] for this. Discussed symptoms and prevention of as well as treatment of hypoglycemia. Patient to call if glucose below 70 or over 250 repeatedly. To have labs at the end of 12/31 and call for results. Suggested to see dietitian to help with carbohydrate controlled meal planning, patient declined. More than 30 minutes were spent with the patient, this included face to face time as well as non face to face time in reviewing medical records, pertinent laboratory results and consultation reports. Encounters Date Type Department Care Team Description 08/13/2025 8:40 AM EST Office Visit [facility] [address] [place] [address] [place] [address] Kavitha Herrera MD Type 2 diabetes mellitus with stage 3b chronic kidney disease, with long-term current use of insulin (Primary Dx); Paresthesia 06/14/2025 Telephone [facility] [address] [place] [address] [place] [address] Kavitha Herrera MD Medication Refill from Last 3 Months Social History Tobacco Use Types Packs/Day Years Used Date Smoking Tobacco: Never Smokeless Tobacco: Never Tobacco Cessation:Counseling Given: Not Answered Alcohol Use Standard Drinks/Week Comments Not Currently [...] Mass Index 30.7 08/13/2025 8:37 AM EST Plan of Treatment Upcoming Encounters Date Type Department Care Team (Late st Contact Info) Description 12/19/2025 10:00 AM EDT Office Visit [facility] [address] [place] [id number] Kavitha Herrera MD [address] [place] [email or web address] Maintenance Due Date Last Done Comments Adult Td,Tdap Booster 1940 DEPRESSION SCREENING 1953 PNEUMOCOCCAL VACCINES (50+ years) (1 of 2 - PCV) 1960 ZOSTER VACCINES (1 of 2) 1991 RSV VACCINE (1 - 1-dose 75+ series) 2016 DIABETIC EYE EXAM 12/15/2022 INFLUENZA VACCINE (#1) 2025 HEMOGLOBIN A1C 05/28/2025 11/28/2024, 08/11, 04/24/2024, Additional history exists COVID-19 VACCINE ( - season) 2025 CREATININE LEVEL 11/28/2025 11/28/2024, 11/2023, 08/25/2024, Additional history exists LIPID PANEL 11/28/2025 11/28/2024, 12/17/2023 POTASSIUM LEVEL 11/28/2025 11/28/2024, 11/2023, 08/25/2024, Additional history exists BLOOD PRESSURE 02/10/2026 08/13/2025 HEPATITIS A VACCINES Aged Out No long er eligible based on patient's age to complete this topic HIB VACCINES Aged Out No longer eligi ble based on patient's age to complete this topic MENINGOCOCCAL VACCINES (ACWY) Aged Out No longer eligible based on patient's age to complete this topic MENINGOCOCCAL VACCINES (B) Aged Out N o longer eligible based on patient's age to complete this topic Medical Devices Not on file Procedures Procedure Name Priority Date/Time Associated Diagnosis Comments HEMOGLOBIN A1C Routine 11/28/2024 8:38 AM EST Type 2 diabetes mellitus with stage 3b chronic kidney disease, with long-term current use of insulin LIPID PANEL Routine 11/28/2024 8:38 AM EST Type 2 diabetes mellitus with stage 3b chronic kidney disease, with long-term current use of insulin COMPREHENSIVE METABOLIC PANEL (CMP) Routine 11/28/2024 8:38 AM EST Type 2 diabetes mellitus with stage 3b chronic kidney disease, with long-term current use of insulin from Last 3 Months or Most Recently Relevant to Health Maintenance Results * (ABNORMAL) Comprehensive metabolic panel (11/28/2024 8:38 AM EST) SODIUM 141 133 - 146 mmol/L [facility] POTASSIUM 4.9 3.3 - 5.1 mmol/L [facility] CHLORIDE 106 96 - 108 mmol/L [facility] CO2 22 21 - 35 mmol/L [facility] BUN 33(H) 6 - 19 mg/dL [facility] CREATININE 1.90(H) 0.5 - 1.5 mg/dL [facility] GLUCOSE 162(H) 70 - 99 mg/dL [facility] ALBUMIN 3.6(L) 3.9 - 4.8 g/dL [facility] TOTAL PROTEIN 7.3 6.5 - 8.0 g/dL [facility] CALCIUM 9.5 8.4 - 10.3 mg/dL [facility] ALKALINE PHOSPHATASE 83 39 - 117 U/L [facility] TOTAL BILIRUBIN 0.4 0.0 - 1.2 mg/dL [facility] AST 20 0 - 37 U/L [facility] ALT 21 0 - 40 U/L [facility] GLOBULIN 3.7 1 - 4.8 g/dL [facility] EGFR 35(L) >59 mL/min/1.7 3m2 [facility] Comment:Estimated glomerular filtration rate calculated using the CKD-EPI refit equation. ANION GAP 18 10 - 20 mmol/L [facility] Blood 11/28/2024 8:38 AM EST 11/28/2024 8:47 AM EST Kavitha Herrera MD LAB BLOOD BKR ORDERABLES Final Result Performing Organization Address City/[facility] Co de Phone Number [address] [address] * (ABNORMAL) Hemoglobin A1c (11/28/2024 8:38 AM EST) HEMOGLOBIN A1C 7.9(H) 4.3 - 5.8 % [facility] Blood 11/28/2024 8:38 AM EST 11/28/2024 8:47 AM EST Kavitha Herrera MD LAB BLOOD BKR ORDERABLES Final Result Performing Organization Address [facility] Co de Phone Number [address] [address] * (ABNORMAL) Lipid panel (11/28/2024 8:38 AM EST) HDL 86 mg/dL [facility] Comment: Interpretation <40 mg/dL: Low HDL cholesterol (major risk factor for CHD) Greater than or equal to 60 mg/dL: High HDL cholesterol ( negative risk factor for CHD) HDL - cholesterol is affected by a number of factors, e.g. smoking, excerise, hormones, sex and age. CHOLESTEROL 207 0 - 240 mg/dL [facility] TRIGLYCERIDES 125 30 - 160 mg/dL [facility] LDL 96 50 - 129 mg/dL [facility] Comment: LDL levels in terms of risk for coronary heart disease: <100 mg/dL: Optimal 100-129 mg/dL: Near or above optimal 130-159 mg/dL: Borderline high 160-189 mg/dL: High >190 mg/dL: Very High CARDIAC RISK RATIO 2.4(L) 3.4 - 5.0 C [facility] Blood 11/28/2024 8:38 AM EST 11/28/2024 8:47 AM EST us Kavitha Herrera MD LAB BLOOD BKR ORDERABLES Final Result [facility] [address] [place] [address] from Last 3 Months or Most Recently Relevant to Health Maintenance Insurance [employer] RE[employer] MEDICARE HMO REPLACEMENT MEDICARE HMO REPLACEMENT [employer] MEDICARE HMO REPLACEMENT Care Teams Meteorologist Liaison Relationship Specialty Start Date End Date Sander Heredia MD [address] [place] [address] [address] [place] [address] PCP - General Internal Medicine 11/11/22 Additional Source Comments The information contained in this document represents components of the legal health record. It is not the complete legal health record.[facility]
--- OUTSIDE RECORDS SUMMARY | 2025-08-15 10:16 | XMS_ITS | Patient Health Record ---
Author Organization [facility] Address [address] [place] [address] Care Team Providers Care Pot Fireman Name Role Phone Yan (RETIRED) Sander SAINI Primary Care Provide r Unavailable Tommy Pwoell Unavailable [phone] Reason For Referral No Information Medications Medication SIG (Take, Route, Fr equency, Duration) Notes Start Date End Date Status glipiZIDE XL Active Lantus 100 UNIT/ML 15 units Subcutaneous at bedtime Active Aspir-81 Active Lisinopril 10mg Acti ve Social History Alcohol Screen Question Answer Notes Did you have a drink containing alcohol in the p ast year? No Points 0 Interpretation Negative Section Notes: Nonsmoker; no sig alcohol Nonsmoker; no sig alcohol Problems Problem Type SNOMED Code ICD Code Onset Dates Problem Status W/U Status Risk Notes Problem Screening for malignant neoplasm of colon (114474497) Encounter for screening for malignant neoplasm of colon (Z12.11) Active confirmed Problem History of adenomatous polyp of colon (300519587) History of adenomatous polyp of colon (Z86.010) Active confirmed Problem Long-term current use of insulin (253149522) long term care administrator (current) use of insulin (Z79.4) Active confirmed Plan Of Treatment Future Test Test Name Order Date COLONOSCOPY 01/13/2013 COLONOSCOPY 05/26/2018 Insurance Providers Payer Name Payer Address Payer Phone Subscriber Number Group Number Insured Name Patient Relationship to Insured Coverage Start Date Coverage End Date [facility] [address] [place] [phone] [id number] [employer] Self - patient is the insured Medical (General) History Medical History History ICD Code Tubular adenoma and hyperpla stic polyps-most recent colonoscopy was 01/2008 with removal of small tubual adenomas; 3 previous colonoscopies with tubular adenomas as well. Colonoscopy in 04/2013 with tubular adenomas removed Diverticulosis Internal hemorrhoids HTN NIDDM Denies VT,CVA,Lung disease,renal disease fatty liver seen on ultrasou nd and CAT scan in 2007, with a normal liver profile-he was found to have some liver cysts.
== END 2025-08-15 09:55 | disposition home or self-care (01) ==
LOC: HO.HMCHD 09:21
PROVIDERS: PCP Internal Medicine; Visit Provider Physician Assistant Medical
DX: E11.22 Type 2 diabetes mellitus with diabetic chronic kidney disease (principal); N18.30 Chronic kidney disease, stage 3 unspecified; I10 Essential (primary) hypertension; G62.9 Polyneuropathy, unspecified; E66.9 Obesity, unspecified

== ENCOUNTER → 2025-08-15 09:21 | Outpatient (BNVA) | payer MEDICARE, SELFPAY | PROVIDERS: PCP Internal Medicine; Visit Provider Physician Assistant Medical | DX: E11.22 Type 2 diabetes mellitus with diabetic chronic kidney disease (principal); N18.30 Chronic kidney disease, stage 3 unspecified; I10 Essential (primary) hypertension; G62.9 Polyneuropathy, unspecified; E66.9 Obesity, unspecified; Z13.31 Encounter for screening for depression; Z13.39 Encounter for screening examination for other mental health and behavioral disorders | CPT/HCPCS: 96127; 99212 ==

== ENCOUNTER 2025-08-20 10:30 | Outpatient (AMB) | payer MEDICARE, SELFPAY ==
[2025-08-20 10:34] VITALS: BP 192/62; PULSE 76; O2SAT 97; BMI 30.2
--- NOTE | 2025-08-20 10:34 | HO.NEPHOV_ITS ---
Vital Signs 08/20/25 10:34 08/20/25 10:45 Height 5 ft 6 in Weight 187 lb BMI 30.2 BP 192/62 H 130/60 Blood Pressure Location Lt brachial Lt brachial Position Sitting Sitting Pulse 76 Pulse Source Pulse Oximeter Pulse Oximetry (%) 97 Oxygen Delivery Method Room Air Intake Visit Reasons: 6mon follow-up w/labs Data Processing Control Clerk Required: No Accompanied by: Self / Same As Patient Allergies No Known Allergies Allergy (Verified 08/20/25 10:36) Medication List - Last Reconciled 08/20/25 by Lj Bowen MD dulaglutide (Trulicity) 0.75 mg subcut QWEEK glipizide ER 10 mg PO BID insulin glargine (Lantus Solostar U-100 Insulin) 15 units subcut QAM lisinopril 10 mg PO DAILY 90 days HPI Comments Details: Elderly man with history of longstanding hypertension diabetes mellitus with CKD. h/o pain in his feet most likely from neuropathy. He was unable to tolerate Lyrica in the past. He was given 100 mg which he did not tolerate. Continues to have some numbness in his feet No urine symptoms. No nausea vomiting. 06/26/2024. Overall doing well. Recently seen by Cardiology. He was discharged after echocardiogram. Trulicity has been discontinued and currently on Jardiance for the last few weeks. He is not too happy with this. Blood sugar has been suboptimal. At home blood pressures have been acceptable. 08/07/24 ;Creatinine has bumped up to 1.98 ;Jardiance was stopped 1 week ago ;Back on Trulicity 10/31/24 ;On trulicity ;BS is better controlled. Off MEtformin ;Cr stays at 1.9 02/19/25 : No urinary issues;Blood sugar acceptable at home. 08/20/25 The patient is an 84-year-old male presenting for a follow-up visit regarding his CKD The patient has a long-standing history of diabetes mellitus, with a recent HbA1c level of 7.4%, indicating suboptimal control. Chronic kidney disease stage 3 is also present, with stable kidney function and a baseline creatinine of 1.7 mg/dL. Hypertension management shows variability in blood pressure readings, with a recent measurement of 126/62 mmHg. The patient experiences leg cramps, for which magnesium supplements provide some relief. [facility] Medical History (Updated 08/15/25 @ 10:44 by MOOK Cannon) Obesity (BMI 30.0-34.9) Peripheral neuropathy Hypertension CKD (chronic kidney disease) stage 3, GFR 30-59 ml/min Diabetes mellitus with chronic kidney disease Surgical History History of colonoscopy (~06/23/18) Family History Mother No problems noted. Father No problems noted. Social History Housing: House Alcohol intake: former Patient Tobacco Use Status: Never used Tobacco e-Cigarette/Vaping Use: Never Used service: No Current occupational status: retired Cognitive needs: No Hearing needs: No Vision needs: Yes (reading glasses) Physical Exam Vital Signs: Last Vital Signs Pulse 76 08/20/25 10:34 BP 130/60 08/20/25 10:45 Pulse Ox 97 08/20/25 10:34 Oxygen Delivery Method Room Air 08/20/25 10:34 BMI result Body Mass Index 30.2 Comfortable Neck supple no JVD. Lungs entry equal no rales. Heart S1-S2 heard no gallop or rub. Abdomen soft nontender. Neuro alert awake oriented. No asterixis. Extremities no edema. Results Reviewed Nephrology Results: Sodium, (135-145) 137 mmol/L 02/14/25 Potassium, (3.3-5.1) 4.8 mmol/L 02/14/25 Chloride, (96-108) 107 mmol/L 02/14/25 Carbon Dioxide, (22-29) 21 mmol/L L 02/14/25 BUN, (9-16) 38 mg/dL H 02/14/25 Creatinine, (0.5-1.4) 1.75 mg/dL H 02/14/25 Calcium, (8.4-10.2) 8.7 mg/dL 02/14/25 Phosphorus, (2.7-4.5) 3.2 mg/dL 02/14/25 PTH Intact, (8.7-77.1) 123.2 pg/mL H 02/14/25 Renal US 07/06/24 Assessment & Plan Assessment & Plan (1) CKD (chronic kidney disease) stage 3, GFR 30-59 ml/min: Code(s): N18.30 - Chronic kidney disease, stage 3 unspecified Category: Medical (2) Diabetes mellitus with chronic kidney disease: Code(s): E11.22 - Type 2 diabetes mellitus with diabetic chronic kidney disease Category: Medical Qualifiers: Chronic kidney disease stage: stage 3 (moderate) Diabetes mellitus assisted insulin use: with assisted use Diabetes mellitus type: type 2 Plan Elderly man CKD 3 in the setting of longstanding diabetes mellitus. Recent bump in creatinine increased from 1.6 up to 1.8. and up to 1.98 The timing corresponds to antonieta initiation of JArdiance ? ALEXA due to Jardiance vs component of hypoperfusion. Now cr is stable at baseline of 1.75 Repeat labs pending ultrasonogram - No obstruction. Creatinine unchanged over 4 months Recent Urine Pro: cr was 0.79 Goal is to slow the progression of renal disease. Continue to avoid nephrotoxic agents including NSAIDs. Blood pressure is well controlled Encouraged him to check his blood pressure at home and to call me with readings. Might have to readjust his medications based on home readings Maintain blood pressure less than 130 mm of mercury. . h/o hyperkalemia ; Resolved ( per pt- repeat was normal) ;Encouraged low K diet h/o Elevated iPTH Mild SHPT will recheck Orders: Orders Complete Blood Count no Diff 6 Months N18.30 - Chronic kidney disease, stage 3 unspecified Creatinine Urine 6 Months N18.30 - Chronic kidney disease, stage 3 unspecified UA and rflx microscopic 6 Months N18.30 - Chronic kidney disease, stage 3 unspecified Basic Metabolic Panel 6 Months N18.30 - Chronic kidney disease, stage 3 unspecified Total Protein Urine Random 6 Months N18.30 - Chronic kidney disease, stage 3 unspecified Coding Level of Care Code Est Pt Level 4 (91918) Diagnoses CKD (chronic kidney disease) stage 3, GFR 30-59 ml/min N18.30 Diabetes mellitus with chronic kidney disease E11.22 Chronic kidney disease stage: stage 3 (moderate) 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
[2025-08-20 10:45] VITALS: BP 130/60
--- OUTSIDE RECORDS SUMMARY | 2025-08-20 12:19 | XMS_ITS | Encounter Summary ---
Author Organization [facility] Address [address] [facility] [address] [place] [phone] Phone Care Team Providers Care Laserist Name Role Phone Sander Heredia MD Primary Care Provider Reason for Visit * Reason Comments New lab orders Encounter Details Date Type Department Care Team (Late st Contact Info) Description 08/17/2025 Orders Only [facility] [address] [place] [id number] Kavitha Herrera MD [address] [place] [phone] [email or web address] Type 2 diabetes mellitus with stage 3b chronic kidney disease, with long-term current use of insulin (Primary Dx) Social History Tobacco Use Types Packs/Day Years [...] on file documented as of this encounter Plan of Treatment Upcoming Encounters Date Type Department Care Team (Late st Contact Info) Description 12/19/2025 10:00 AM EDT Office Visit [facility] [address] [place] [address] Kavitha Herrera MD [address] [place] [phone] [email or web address] Scheduled Orders Name Type Priority Associated Diagnoses Orde r Schedule Hemoglobin A1c Lab Routine Type 2 diabetes mellitus with stage 3b chronic kidney disease, with long-term current use of insulin Expected: 12/05/2025 (Approximate), Expires: 03/05/2026 Comprehensive Metabolic Panel (CMP) Lab Routine Type 2 diabetes mellitus with stage 3b chronic kidney disease, with long-term current use of insulin Expected: 12/05/2025 (Approximate), Expires: 03/05/2026 Lipid Panel Lab Routine Type 2 diabetes mellitus with stage 3b chronic kidney disease, with long-term current use of insulin Expected: 12/05/2025 (Approximate), Expires: 03/05/2026 documented as of this encounter Visit Diagnoses Diagnosis Type 2 diabetes mellitus with stage 3b chronic kidney disease, with long-term current use of insulin- Primary documented in this encounter Care Teams Laserist Relationship Specialty Start Date End Date Sander Heredia MD [address] [place] [address] [place] [address] PCP - General Internal Medicine 11/11/22 documented as of this encounter Additional Source Comments The information contained in this document represents components of the legal health record. It is not the complete legal health record.[facility]
--- OUTSIDE RECORDS SUMMARY | 2025-08-20 12:19 | XMS_ITS | Continuity of Care Document ---
Author Organization [facility] [address] [facility] [address] [place] [address] Phone [phone] Social History Type Date Description Comments Sex Male Sex Unknown Medical Devices Description No Information Available Encounters Description No Information Available Assessments Description No Information Available Plan of Treatment No Information Available Functional Status Description No Information Available Mental Status Description No Information Available Referrals Description No Information Available
--- OUTSIDE RECORDS SUMMARY | 2025-08-20 12:19 | XMS_ITS | Clinical Summary ---
Author Organization [facility] Address [address] [address] Phone Care Team Providers Care Lamp Shade Maker Name Role Phone Sander Heredia MD Primary [...] Problem Noted Date Diagnosed Date Paresthesia 08/13/2025 Assessment & Plan (08/16/2025 12:05 AM EST): Right foot paresthesia remains since back surgery few years ago. Patient stopped taking the alpha lipoic acid sometime ago, not sure why. He is not on B12. -Will check B12 level with next labs Hyperkalemia 09/03/2024 Type 2 diabetes mellitus wit [...] use of insulin 04/25/2023 Assessment & Plan (08/16/2025 12:04 AM EST): Control is reasonable by reported SMBG. Last A1c 7.9% in 11/2024. 1 episode of mild hypoglycemia when skipped breakfast and had increased physical activity a few weeks ago. He remains on 14 to 15 units of Lantus at bedtime, 0.75 mg Trulicity weekly with glipizide 10 mg twice a day. Has appointment with his atmospheric drier tender, Dr. Nunes in 2 days. -Will have blood work today, added renal labs to share with Dr. Nunes at next appointment -If A1c over 7.5%, would increase Trulicity dose to 1.5 mg weekly. Patient is hesitant about this change, will rediscuss -Reviewed symptoms, prevention and treatment of hypoglycemia. Patient to decrease Lantus dose by 2 units if blood sugars below 70 repeatedly. -Continue to work on healthy meal plan, do not skip meals. -Call with blood sugar problems -Follow-up in 12/2025 Assessment & Plan (12/04/2024 10:10 PM EST): [...] is trying to get assistance from the centerless grinder set up operator. Encouraged to call to follow-up on his [...] costly. He will request patient assistance from centerless grinder set up operator and will let me know if he will be able to add Jardiance. Would expect lower insulin needed when on this medication. Followed by atmospheric drier tender, every 6 months. Reports stable renal function, recent labs not available. 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 Continued numbness in the right foot since back surgery 15 months ago, stable but quite annoying to patient. He is planning to see a specialist in [place] for this. Discussed symptoms and prevention of [...] Encounters Date Type Department Care Team Description 08/17/2025 Orders Only [facility] Endocrinology [address] [place] [address] [place] [address] Kavitha Herrera MD Type 2 diabetes mellitus with stage 3b chronic kidney disease, with long-term current use of insulin (Primary Dx) 08/13/2025 8:40 AM EST Office Visit [facility] Endocrinology [address] [place] [address] [place] [address] Kavitha Herrera MD Type 2 diabetes mellitus with stage 3b chronic kidney disease, with long-term current use of insulin (Primary Dx); Paresthesia 06/14/2025 Telephone [facility] Endocrinology [address] [place] [address] [place] [address] Kavitha Herrera MD Medication Refill from Last [...] 10:00 AM EDT Office Visit [facility] [address] [place] [phone] Kavitha Herrera MD [address] [place] [phone] [email or web address] Health Maintenance Due Date Last Done Comments Adult Td,Tdap Booster 1940 DEPRESSION SCREENING 1953 PNEUMOCOCCAL VACCINES (50+ years) (1 of 2 - PCV) 1960 ZOSTER VACCINES (1 of 2) 1991 RSV VACCINE (1 - 1-dose 75+ series) 2016 DIABETIC EYE EXAM 12/15/2022 INFLUENZA VACCINE (#1) 2025 COVID-19 VACCINE ( - 2024- season) 2025 LIPID PANEL 11/28/2025 11/28/2024, 12/17/2023 BLOOD PRESSURE 02/10/2026 08/13/2025 HEMOGLOBIN A1C 02/13/2026 08/16/2025, 11/11, 08/25/2024, Additional history exists CREATININE LEVEL 08/16/2026 08/16/2025, , 09/11/2024, Additional history exists POTASSIUM LEVEL 08/16/2026 08/16/2025, 11/11, 09/11/2024, Additional history exists HEPATITIS A VACCINES Aged Out No long er eligible based on patient's age to complete this topic HIB VACCINES Aged Out No longer eligi ble based on patient's age to complete this topic IPV VACCINES Aged Out No longer eligi ble based on patient's age to complete this topic MENINGOCOCCAL VACCINES (ACWY) Aged Out No longer eligible based on patient's age to complete this topic MENINGOCOCCAL VACCINES (B) Aged Out N o longer eligible based on patient's age to complete this topic Medical Devices Not on file Procedures Procedure Name Priority Date/Time Associated Diagnosis Comments MICROALBUMIN/CREATININ E RATIO, RANDOM URINE Routine 08/16/2025 8:51 AM EST Type 2 diabetes mellitus with stage 3b chronic kidney disease, with long-term current use of insulin MAGNESIUM Routine 08/16/2025 8:37 AM EST Type 2 diabetes mellitus with stage 3b chronic kidney disease, with long-term current use of insulin CBC Routine 08/16/2025 8:37 AM EST Type 2 diabetes mellitus with stage 3b chronic kidney disease, with long-term current use of insulin VITAMIN B12 Routine 08/16/2025 8:37 AM EST Type 2 diabetes mellitus with stage 3b chronic kidney disease, with long-term current use of insulin PHOSPHORUS Routine 08/16/2025 8:37 AM EST Type 2 diabetes mellitus with stage 3b chronic kidney disease, with long-term current use of insulin PARATHYROID HORMONE (PTH) Routine 08/16/2025 8:37 AM EST Paresthesia TSH WITH REFLEX Routine 08/16/2025 8:37 AM EST Type 2 diabetes mellitus with stage 3b chronic kidney disease, with long-term current use of insulin COMPREHENSIVE METABOLIC PANEL (CMP) Routine 08/16/2025 8:37 AM EST Type 2 diabetes mellitus with stage 3b chronic kidney disease, with long-term current use of insulin HEMOGLOBIN A1C Routine 08/16/2025 8:37 AM EST Type 2 diabetes mellitus with stage 3b chronic kidney disease, with long-term current use of insulin LIPID PANEL Routine 11/28/2024 8:38 AM EST Type 2 diabetes mellitus with stage 3b chronic kidney disease, with long-term current use of insulin from Last 3 Months or Most Recently Relevant to Health Maintenance Results * (ABNORMAL) Microalbumin/Creatinine Ratio, Random Urine (08/16/2025 8:51 AM EST) Pathologist [facility] Creatinine, Urine 92 mg/dL 08/16/2025 12:15 PM [facility] Microalbumin, Urine 48.0(H) <2.0 mg/dL 08/16/2025 12:15 PM [facility] MALB/CRE 521.7(H) <30.0 mg/g Cre 08/16/2025 12:15 PM [facility] Urine (Urine, Voided) Non-Blood Collection / Unknown 08/16/2025 8:51 AM EST 08/16/2025 8:51 AM EST Narrative [facility] - 08/16/2025 12:15 PM EST The reference interval(s) are unavailable for this specimen type. Comparison of this result with other laboratory results, such as the concentration in the blood, serum, or plasma, is recommended. The test result should be integrated into the clinical context for interpretation. us Kavitha Herrera MD LAB URINE ORDERABLES Final Res ult [address] [address] * (ABNORMAL) Comprehensive Metabolic Panel (CMP) (08/16/2025 8:37 AM EST) Sodium 138 136 - 145 mmol/L 08/16/2025 2:06 PM [facility] Potassium 5.0 3.4 - 5.1 mmol/L 08/16/2025 2:06 PM [facility] Chloride 107 98 - 107 mmol/L 08/16/2025 2:06 PM [facility] CO2 20 20 - 31 mmol/L 08/16/2025 2:06 PM [facility] Anion Gap 11 3 - 17 mmol/L 08/16/2025 2:06 PM [facility] BUN 35(H) 6 - 23 mg/dL 08/16/2025 2:06 PM [facility] Creatinine 1.60(H) 0.60 - 1.30 mg/dL 08/16/2025 2:06 PM [facility] eGFR 42(L) >59 mL/min/1.7 3m2 08/16/2025 2:06 PM [facility] Comment:Estimated glomerular filtration rate calculated using the CKD-EPI refit equation. Glucose 128(H) 70 - 99 mg/dL 08/16/2025 2:06 PM [facility] Calcium 8.9 8.5 - 10.5 mg/dL 08/16/2025 2:06 PM [facility] AST 17 <40 U/L 08/16/2025 2:06 PM [facility] ALT 16 <50 U/L 08/16/2025 2:06 PM [facility] Alkaline Phosphatase 80 40 - 130 U/L 08/16/2025 2:06 PM [facility] Bilirubin, Total 0.4 0.0 - 1.2 mg/dL 08/16/2025 2:06 PM [facility] Total Protein 7.0 6.4 - 8.3 g/dL 08/16/2025 2:06 PM [facility] Albumin 4.0 3.5 - 5.2 g/dL 08/16/2025 2:06 PM [facility] Globulin 3.0 1.9 - 4.1 g/dL 08/16/2025 2:06 PM [facility] Blood (Blood) Venipuncture / Unknown 08/16/2025 8:37 AM EST 08/16/2025 8:38 AM EST Kavitha Herrera MD LAB BLOOD BKR ORDERABLES Final Result Performing Organization Address [facility]/ZIP Co de Phone Number [address] [address] * Thyroid Stimulating Hormone (TSH), with Reflex (08/16/2025 8:37 AM EST) TSH 1.35 0.40 - 7.50 uIU/mL 08/16/2025 2:06 PM [facility] Blood (Blood) Venipuncture / Unknown 08/16/2025 8:37 AM EST 08/16/2025 8:38 AM EST us Kavitha Herrera MD LAB BLOOD BKR ORDERABLES Final Result Performing Organization Address [facility] Co de Phone Number [address] [address] * CBC (08/16/2025 8:37 AM EST) WBC 8.37 4.00 - 11.00 K/uL 08/16/2025 10:46 AM [facility] RBC 5.08 4.50 - 5.90 M/uL 08/16/2025 10:46 AM [facility] Hemoglobin 14.8 13.5 - 17.5 g/dL 08/16/2025 10:46 AM [facility] Hematocrit 43.7 41.0 - 53.0 % 08/16/2025 10:46 AM [facility] MCV 86.0 80.0 - 100.0 fL 08/16/2025 10:46 AM [facility] MCH 29.1 27.0 - 31.0 pg 08/16/2025 10:46 AM [facility] MCHC 33.9 32.0 - 36.0 g/dL 08/16/2025 10:46 AM [facility] PLT 223 150 - 450 K/uL 08/16/2025 10:46 AM [facility] MPV 11.2 8.4 - 12.0 fL 08/16/2025 10:46 AM [facility] RDW-CV 13.4 11.5 - 14.5 % 08/16/2025 10:46 AM [facility] Absolute NRBC 0.00 <=0.00 K cells/uL 08/16/2025 10:46 AM [facility] NRBC 0.0 <=0.0 /100 WBCs 08/16/2025 10:46 AM [facility] Blood (Blood) Venipuncture / Unknown 08/16/2025 8:37 AM EST 08/16/2025 8:38 AM EST Kavitha Herrera MD LAB BLOOD BKR ORDERABLES Final Result Performing Organization Address City/[facility]/ZIP Co de Phone Number [address] [address] * Phosphorus (08/16/2025 8:37 AM EST) Phosphorus 3.2 2.5 - 4.5 mg/dL 08/16/2025 2:06 PM [facility] Blood (Blood) Venipuncture / Unknown 08/16/2025 8:37 AM EST 08/16/2025 8:38 AM EST Kavitha Herrera MD LAB BLOOD BKR ORDERABLES Final Result [address] [address] * (ABNORMAL) Parathyroid Hormone (PTH) (08/16/2025 8:37 AM EST) Parathyroid Hormone (PTH) 76(H) 15 - 65 pg/mL 08/16/2025 12:01 PM [facility] Blood (Blood) Venipuncture / Unknown 08/16/2025 8:37 AM EST 08/16/2025 8:38 AM EST us Kavitha Herrera MD LAB BLOOD BKR ORDERABLES Final Result Performing Organization Address City/[facility]/ZIP Co de Phone Number [address] [address] * Magnesium (08/16/2025 8:37 AM EST) Magnesium 2.0 1.7 - 2.6 mg/dL 08/16/2025 2:06 PM [facility] Blood (Blood) Venipuncture / Unknown 08/16/2025 8:37 AM EST 08/16/2025 8:38 AM EST us Kavitha Herrera MD LAB BLOOD BKR ORDERABLES Final Result Performing Organization Address [facility] de Phone Number [address] [address] * (ABNORMAL) Hemoglobin A1c (08/16/2025 8:37 AM EST) Hemoglobin A1c 7.4(H) 4.3 - 5.6 % 08/16/2025 12:45 PM [facility] Calculated Mean Blood Glucose 166 mg/dL 08/16/2025 12:45 PM [facility] Comment:There is no establis [facility] normal range for the Estimated Average Glucose (EAG). However, a HbA1c of 5.6% (upper limit of normal) represents an EAG of 114 mg/dL. The diagnostic HbA1c level for diabetes is greater than or equal to 6.5%, which represents an EAG greater than or equal to 140 mg/dL. Blood (Blood) Venipuncture / Unknown 08/16/2025 8:37 AM EST 08/16/2025 8:38 AM EST Kavitha Herrera MD LAB BLOOD BKR ORDERABLES Final Result Performing Organization Address [facility] Co de Phone Number [address] [address] * Vitamin B12 (08/16/2025 8:37 AM EST) Vitamin B12 665 232 - 1,245 pg/mL 08/16/2025 11:34 AM EST [facility] Blood (Blood) Venipuncture / Unknown 08/16/2025 8:37 AM EST 08/16/2025 8:38 AM EST us Kavitha Herrera MD LAB BLOOD BKR ORDERABLES Final Result Performing Organization Address City/[facility]/ZIP Co de Phone Number [address] [address] * (ABNORMAL) Lipid panel (11/28/2024 8:38 AM EST) HDL 86 mg/dL [facility] Comment: Interpretation <40 mg/dL: Low HDL cholesterol (major risk factor for CHD) Greater than or equal to 60 mg/dL: High HDL cholesterol ( negative risk factor for CHD) HDL - cholesterol is affected by a number of factors, e.g. smoking, excerise, hormones, sex and age. CHOLESTEROL 207 0 - 240 mg/dL [facility] TRIGLYCERIDES 125 30 - 160 mg/dL [facility] LDL 96 50 - 129 mg/dL [facility] Comment: LDL levels in terms of risk for coronary heart disease: <100 mg/dL: Optimal 100-129 mg/dL: Near or above optimal 130-159 mg/dL: Borderline high 160-189 mg/dL: High >190 mg/dL: Very High CARDIAC RISK RATIO 2.4(L) 3.4 - 5.0 C [facility] Blood 11/28/2024 8:38 AM EST 11/28/2024 8:47 AM EST us Kavitha Herrera MD LAB BLOOD BKR ORDERABLES Final Result Performing Organization Address City/[facility]/ZIP Co de Phone Number [address] [phone] from Last 3 Months or Most Recently Relevant to Health Maintenance Insurance [employer]EMENT [employer]EMENT [facility] MEDICARE HMO REPLACEMENT [employer] Member Subscriber Plan / Payer (Ef fective 2018-Present) Name:Jame Hurt Relation to Subscriber:Self Name:Jame Hurt Payer ID:Not on file Type:Medicare Address: [place] [id number] Care Teams Lamp Shade Maker Relationship Specialty Start Date End Date Sander Heredia MD [address] [place] [address] [place] [address] PCP - General Internal Medicine 2/1/23 Additional Source Comments The information contained in this document represents components of the legal health record. It is not the complete legal health record.[facility]
--- OUTSIDE RECORDS SUMMARY | 2025-08-20 12:19 | XMS_ITS | Clinical Summary ---
Author Organization [facility] Address [address] [place] [address] Phone Care Team Providers Care Medtronics Technician Name Role Phone Sander Heredia MD Primary Care Provider [phone] Allergies No known active allergies Medications glipiZIDE [...] Visual Foot Exam 11/11/2020 Influenza Vaccine (#1) 2025 Pneumococcal Vaccine: Peds ( 0 to 5 Years) and At-Risk Patients (6 to 49 Years) Discontinued 04/12/2014 Hepatitis B Vaccine Aged Out No longe r eligible based on patient's age to complete this topic Insurance Care Teams Medtronics Technician Relationship Specialty Start Date End Date Sander Heredia MD [address] [facility] [id number] [place], [place] PCP - General 10/21/20
== END 2025-08-20 10:52 | disposition home or self-care (01) ==
LOC: HO.HKA 10:31
PROVIDERS: PCP Internal Medicine; Visit Provider Internal Medicine Hypertension Specialist
DX: E11.22 Type 2 diabetes mellitus with diabetic chronic kidney disease (principal); N18.30 Chronic kidney disease, stage 3 unspecified
CPT/HCPCS: 99214

== ENCOUNTER → 2025-08-20 10:30 | Outpatient (BNVA) | payer MEDICARE, SELFPAY | PROVIDERS: PCP Internal Medicine; Visit Provider Internal Medicine Hypertension Specialist | DX: E11.22 Type 2 diabetes mellitus with diabetic chronic kidney disease (principal); N18.30 Chronic kidney disease, stage 3 unspecified | CPT/HCPCS: 99212 ==